=== PATIENT | male | born 1940 | race Caucasian/White ===

== ENCOUNTER → 2017-02-13 | Outpatient (REF) | payer MEDICARE, BC ==
[~2017-02-13] MED LIST: ASPI325T PO; BISO5TAB5 PO; COUM6TAB PO; DIGO0.25 PO; IBUP200C PO; PRAV40TA PO; PRIL40CA PO
[2017-02-13 17:18] LABS: MEAN CORPUSCULAR HEMOGLOBIN 33.6 pg (27.0-33.0); MEAN CORPUSCULAR HGB CONC 32.7 g/dl (32.0-36.5); MEAN CORPUSCULAR VOLUME 102.7 fl (80.0-96.0); RED CELL DISTRIBUTION WIDTH 13.3 % (11.5-14.5)
[2017-02-13 18:11] LABS: VITAMIN B12 LEVEL 595 PG/ML (247-911)
[2017-02-13 18:17] LABS: ALBUMIN 3.7 GM/DL (3.2-5.2); ALBUMIN/GLOBULIN RATIO 1.06 (1.00-1.93); ALKALINE PHOSPHATASE 101 U/L (45-117); ALT/SGPT 22 U/L (12-78); ANION GAP 6 MEQ/L (8-16); AST/SGOT 31 U/L (15-37); BILIRUBIN,TOTAL 0.8 MG/DL (0.2-1.0); BLOOD UREA NITROGEN 11 MG/DL (7-18); CALCIUM LEVEL 9.3 MG/DL (8.8-10.2); CARBON DIOXIDE LEVEL 31 MEQ/L (21-32); CHLORIDE LEVEL 98 MEQ/L (98-107); CHOLESTEROL LEVEL 169 MG/DL (<200); CREATININE FOR GFR 1.21 MG/DL (0.70-1.30); DIGOXIN LEVEL 1.7 NG/ML (0.5-2.0); GLOMERULAR FILTRATION RATE > 60.0 (>42); GLUCOSE, FASTING 91 MG/DL (83-110); POTASSIUM SERUM 4.8 MEQ/L (3.5-5.1); SODIUM LEVEL 135 MEQ/L (136-145); TOTAL PROTEIN 7.2 GM/DL (6.4-8.2); TRIGLYCERIDES LEVEL 116 MG/DL (<150)
== END ==
LOC: M SFHCCAPE 09:35
PROVIDERS: ATTEND Physician Assistant
DX: I48.91 Unspecified atrial fibrillation (principal); Z12.5 Encounter for screening for malignant neoplasm of prostate; M25.50 Pain in unspecified joint; Z79.899 Other long term (current) drug therapy
CPT/HCPCS: 36415; 80053; 80061; 80162; 82607; 84443; 85027; G0103

== ENCOUNTER → 2018-02-16 | Outpatient (REF) | payer MEDICARE, BC | LOC: M SFHCCAPE 09:41 | DX: I48.91 Unspecified atrial fibrillation (principal); Z12.5 Encounter for screening for malignant neoplasm of prostate; Z53.8 Procedure and treatment not carried out for other reasons ==

== ENCOUNTER → 2018-02-19 | Outpatient (REF) | payer MEDICARE, BC ==
[2018-02-19 16:44] LABS: BASO % 0.7 % (0.0-1.0); EOS # 0.2 10^3/uL (0.0-0.50); EOS % 4.3 % (0.0-3.0); HEMATOCRIT 46.3 % (42.0-52.0); HEMOGLOBIN 15.6 g/dl (13.5-17.5); IMMATURE GRANULOCYTE % 0.2 % (0-3.0); MEAN CORPUSCULAR HEMOGLOBIN 32.9 pg (27.0-33.0); MEAN CORPUSCULAR HGB CONC 33.7 g/dl (32.0-36.5); MEAN CORPUSCULAR VOLUME 97.7 fl (80.0-96.0); MONO # 0.5 10^3/uL (0.0-0.8); MONO % 8.7 % (0.0-5.0); NEUTROPHILS # 2.7 10^3/uL (1.8-7.7); NEUTROPHILS % 49.1 % (36.0-66.0); PLATELET COUNT, AUTOMATED 157 10^3/uL (150-450); RED BLOOD COUNT 4.74 10^6/uL (4.30-6.10); RED CELL DISTRIBUTION WIDTH 14.2 % (11.5-14.5); WHITE BLOOD COUNT 5.5 10^3/uL (4.0-10.0)
[2018-02-19 17:22] LABS: ALBUMIN 3.9 GM/DL (3.2-5.2); ALBUMIN/GLOBULIN RATIO 1.03 (1.00-1.93); ALKALINE PHOSPHATASE 105 U/L (45-117); ALT/SGPT 24 U/L (12-78); ANION GAP 6 MEQ/L (8-16); AST/SGOT 36 U/L (7-37); BILIRUBIN,TOTAL 1.1 MG/DL (0.2-1.0); BLOOD UREA NITROGEN 17 MG/DL (7-18); CALCIUM LEVEL 9.1 MG/DL (8.8-10.2); CARBON DIOXIDE LEVEL 31 MEQ/L (21-32); CHLORIDE LEVEL 101 MEQ/L (98-107); CHOLESTEROL LEVEL 169 MG/DL (<200); CHOLESTEROL RISK RATIO 2.522 (<5); CREATININE FOR GFR 1.12 MG/DL (0.70-1.30); FREE T4 1.07 NG/DL (0.76-1.46); GLOMERULAR FILTRATION RATE > 60.0 (>42); GLUCOSE, FASTING 88 MG/DL (70-100); HDL CHOLESTEROL 67 MG/DL (>40); LDL CHOLESTEROL 83.8 MG/DL (<100); NON-HDL-C 102 MG/DL; POTASSIUM SERUM 4.4 MEQ/L (3.5-5.1); PSA SCREENING 2.91 NG/ML (< 4.0); SODIUM LEVEL 138 MEQ/L (136-145); TOTAL PROTEIN 7.7 GM/DL (6.4-8.2); TRIGLYCERIDES LEVEL 91 MG/DL (<150)
== END ==
LOC: M SFHCCAPE 10:19
DX: Z12.5 Encounter for screening for malignant neoplasm of prostate (principal); I10 Essential (primary) hypertension
CPT/HCPCS: 84443

== ENCOUNTER → 2018-05-27 | Outpatient (REF) | payer MEDICARE, BC | LOC: M SFHCCAPE 09:53 | DX: Z01.818 Encounter for other preprocedural examination (principal); H26.9 Unspecified cataract ==

== ENCOUNTER 2018-06-11 06:46 | Day surgery (SDC) | payer MEDICARE, BC ==
[2018-06-11] MEDS ORDERED: MIDAZOLAM INJ 2 MG/2 ML VIAL (J2250) As Ordered (07:11)
[2018-06-11] MEDS ORDERED: fentaNYL 100 MCG/2 ML INJECTION (J3010) As Ordered (07:11)
[2018-06-11] MEDS: PROPARACAINE 0.5% OPHTH SOL 15ML OS (07:42)
[2018-06-11] MEDS: TROPICAMIDE 1% OPHTH SOLN 2ML OS (07:42)
[2018-06-11] MEDS: PHENYLEPHRINE 2.5% OPHTH SOL 2ML OS (07:42)
[2018-06-11] MEDS: OFLOXACIN 0.3 % (OCUFLOX) OPTH SOL 5ML OS (07:42)
[2018-06-11] MEDS: POVIDONE-IODINE 5% OPHTH PREP SOL 30ML As Ordered (09:04)
[2018-06-11] MEDS: LIDOCAINE 0.75%/EPINEPHRINE 0.025% IN BSS 1ML SYR INTRACAMERAL (OR ONLY) As Ordered (09:08)
[2018-06-11] MEDS: BALANCED SALT IRRIGATION SOLUTION 500ML BAG (FOR OR EYE MACHINE) As Ordered (09:11)
[2018-06-11] MEDS: DUOVISC (0.50ML VISCOAT/0.55ML PROVISC) OPHTH KIT As Ordered (09:13)
== END 2018-06-11 09:52 | disposition home or self-care (01) ==
LOC: M SDC 06:46
DX: H25.12 Age-related nuclear cataract, left eye (principal); I48.91 Unspecified atrial fibrillation; Z86.73 Personal history of transient ischemic attack (TIA), and cerebral infarction without residual deficits; Z88.0 Allergy status to penicillin; Z79.899 Other long term (current) drug therapy; F17.210 Nicotine dependence, cigarettes, uncomplicated
CPT/HCPCS: 66984

== ENCOUNTER 2018-06-18 08:09 | Day surgery (SDC) | payer MEDICARE, BC ==
[2018-06-18] MEDS: PHENYLEPHRINE 2.5% OPHTH SOL 2ML OD (09:16)
[2018-06-18] MEDS: TROPICAMIDE 1% OPHTH SOLN 2ML OD (09:16)
[2018-06-18] MEDS: PROPARACAINE 0.5% OPHTH SOL 15ML OD (09:17)
[2018-06-18] MEDS: OFLOXACIN 0.3 % (OCUFLOX) OPTH SOL 5ML OD (09:17)
[2018-06-18] MEDS ORDERED: MIDAZOLAM INJ 2 MG/2 ML VIAL (J2250) As Ordered (10:22)
[2018-06-18] MEDS ORDERED: fentaNYL 100 MCG/2 ML INJECTION (J3010) As Ordered (10:22)
[2018-06-18] MEDS: BALANCED SALT IRRIGATION SOLUTION 500ML BAG (FOR OR EYE MACHINE) As Ordered (11:00)
[2018-06-18] MEDS: POVIDONE-IODINE 5% OPHTH PREP SOL 30ML As Ordered (11:00)
[2018-06-18] MEDS: DUOVISC (0.50ML VISCOAT/0.55ML PROVISC) OPHTH KIT As Ordered (11:01)
[2018-06-18] MEDS: LIDOCAINE 0.75%/EPINEPHRINE 0.025% IN BSS 1ML SYR INTRACAMERAL (OR ONLY) As Ordered (11:01)
== END 2018-06-18 11:44 | disposition home or self-care (01) ==
LOC: M SDC 08:09
DX: H25.11 Age-related nuclear cataract, right eye (principal); I48.2 Chronic atrial fibrillation; I10 Essential (primary) hypertension; R25.2 Cramp and spasm; R60.9 Edema, unspecified; F17.200 Nicotine dependence, unspecified, uncomplicated; E78.5 Hyperlipidemia, unspecified; Z88.0 Allergy status to penicillin; Z79.899 Other long term (current) drug therapy; Z79.01 Long term (current) use of anticoagulants; Z86.73 Personal history of transient ischemic attack (TIA), and cerebral infarction without residual deficits
CPT/HCPCS: 66984

== ENCOUNTER → 2020-03-27 | Outpatient (REF) | payer MEDICARE, BC ==
[~2020-03-27] MED LIST changes: +ASPI-1 PO; -ASPI325T PO; +BISO5TAB14 PO; -BISO5TAB5 PO; +ELIQ5TAB PO; -IBUP200C PO; +IBUP200C25 PO; +MAGN250T9 PO; +TYLE500T78 PO
[2020-03-27 11:29] LABS: APPEARANCE, URINE CLEAR (CLEAR); BACTERIA, URINE AUTO 3+ (NEGATIVE); BASO % 0.7 % (0.0-1.0); BILIRUBIN, URINE AUTO NEGATIVE (NEGATIVE); BLOOD, URINE BLOOD NEGATIVE (NEGATIVE); COLOR, URINE YELLOW (YELLOW); EOS # 0.5 10^3/uL (0.0-0.5); EOS % 8.6 % (0.0-3.0); GLUCOSE, URINE (UA) AUTO NEGATIVE (NEGATIVE); HEMATOCRIT 44.6 % (42.0-52.0); HEMOGLOBIN 14.6 g/dl (13.5-17.5); KETONE, URINE AUTO NEGATIVE (NEGATIVE); LEUKOCYTE ESTERASE, URINE AUTO 1+ (NEGATIVE); LYMPH # 2.6 10^3/uL (1.5-5.0); LYMPH % 45.4 % (24.0-44.0); MEAN CORPUSCULAR HEMOGLOBIN 31.9 pg (27.0-33.0); MEAN CORPUSCULAR HGB CONC 32.7 g/dl (32.0-36.5); MEAN CORPUSCULAR VOLUME 97.4 fl (80.0-96.0); MONO # 0.5 10^3/uL (0.0-0.8); MONO % 8.3 % (0.0-5.0); MUCUS, URINE SMALL (NEGATIVE); NEUTROPHILS # 2.1 10^3/uL (1.5-8.5); NEUTROPHILS % 36.8 % (36.0-66.0); NITRITE, URINE AUTO POSITIVE (NEGATIVE); PLATELET COUNT, AUTOMATED 141 10^3/uL (150-450); PROTEIN, URINE AUTO NEGATIVE (NEGATIVE); RBC, URINE AUTO 2 /HPF (0-3); RED BLOOD COUNT 4.58 10^6/uL (4.30-6.10); SPECIFIC GRAVITY URINE AUTO 1.016 (1.002-1.035); SQUAMOUS EPITHELIAL CELL UR AU 0 /HPF (0-6); UROBILINOGEN, URINE AUTO 0.2 mg/dL (0.0-2.0); WBC, URINE AUTO 15 /HPF (0-3); WHITE BLOOD COUNT 5.8 10^3/uL (4.0-10.0)
[2020-03-27 11:45] LABS: ALBUMIN 3.7 GM/DL (3.2-5.2); BILIRUBIN,TOTAL 0.7 MG/DL (0.2-1.0); CHOLESTEROL RISK RATIO 2.606 (<5); CREATININE FOR GFR 1.32 MG/DL (0.70-1.30); DIGOXIN LEVEL 0.9 NG/ML (0.5-2.0); GLOMERULAR FILTRATION RATE 55.6 (>35); POTASSIUM SERUM 4.6 MEQ/L (3.5-5.1); THYROID STIMULATING HORMONE 1.73 uIU/ML (0.358-3.740); TOTAL PROTEIN 7.2 GM/DL (6.4-8.2)
== END ==
LOC: M SFHCCLAY 07:49
PROVIDERS: ATTEND Physician Assistant
DX: I48.91 Unspecified atrial fibrillation (principal); E78.5 Hyperlipidemia, unspecified; Z12.5 Encounter for screening for malignant neoplasm of prostate; I10 Essential (primary) hypertension
CPT/HCPCS: 80053; 80061; 80162; 81001; 84443; 85025; G0103

== ENCOUNTER → 2022-11-20 | Outpatient (REF) | payer MEDICARE ==
[~2022-11-20] MED LIST changes: -COUM6TAB PO; +COUM6TAB10 PO
[2022-11-20 17:02] LABS: ALBUMIN 3.7 G/DL (3.2-5.2); BILIRUBIN,TOTAL 0.8 MG/DL (0.3-1.2); CALCIUM LEVEL 9.6 MG/DL (8.3-10.6); CHOLESTEROL RISK RATIO 2.38 (<5); CREATININE FOR GFR 1.4 MG/DL (0.70-1.30); DIGOXIN LEVEL 1.4 NG/ML (0.8-2.0); GLOMERULAR FILTRATION RATE 51.7 (>35); HDL CHOLESTEROL 57.9 MG/DL (>40); LDL CHOLESTEROL 64.7 MG/DL (<100)
[2022-11-20 17:04] LABS: THYROID STIMULATING HORMONE 2.221 uIU/ML (0.55-4.78)
[2022-11-20 17:14] LABS: BASO % 0.7 % (0.0-1.0); EOS # 0.3 10^3/uL (0.0-0.5); EOS % 7.6 % (0.0-3.0); HEMATOCRIT 38.6 % (42.0-52.0); HEMOGLOBIN 12.4 g/dl (13.5-17.5); LYMPH # 1.2 10^3/uL (1.5-5.0); MEAN CORPUSCULAR HEMOGLOBIN 31.3 pg (27.0-33.0); MEAN CORPUSCULAR HGB CONC 32.1 g/dl (32.0-36.5); MEAN CORPUSCULAR VOLUME 97.5 fl (80.0-96.0); MONO # 0.5 10^3/uL (0.0-0.8); MONO % 11.1 % (2.0-8.0); NEUTROPHILS # 2.1 10^3/uL (1.5-8.5); NEUTROPHILS % 50.4 % (36.0-66.0); PLATELET COUNT, AUTOMATED 141 10^3/uL (150-450); RED BLOOD COUNT 3.96 10^6/uL (4.30-6.10); WHITE BLOOD COUNT 4.1 10^3/uL (4.0-10.0)
== END ==
LOC: M SFHCCAPE 10:38
PROVIDERS: ATTEND Physician Assistant
DX: I10 Essential (primary) hypertension (principal); E78.5 Hyperlipidemia, unspecified; I48.21 Permanent atrial fibrillation; Z12.5 Encounter for screening for malignant neoplasm of prostate
CPT/HCPCS: 80053; 80061; 80162; 84443; 85025; G0103

== ENCOUNTER → 2023-03-03 | Outpatient (REF) | payer MEDICARE ==
[2023-03-03 18:49] LABS: HEMOGLOBIN A1c 5.1 % (4.0-6.0)
[2023-03-03 19:04] LABS: CALCIUM LEVEL 9.4 MG/DL (8.3-10.6); CREATININE FOR GFR 1.32 MG/DL (0.70-1.30); GLOMERULAR FILTRATION RATE 55.1 (>35); POTASSIUM SERUM 4.6 MMOL/L (3.5-5.1)
== END ==
LOC: M LABDRWCV 17:15
PROVIDERS: ATTEND Physician Assistant
DX: R60.9 Edema, unspecified (principal); I73.9 Peripheral vascular disease, unspecified; Z79.899 Other long term (current) drug therapy

== ENCOUNTER → 2023-03-21 | Outpatient (CLI) | payer MEDICARE | LOC: M RAD 13:24 | PROVIDERS: ATTEND Internal Medicine Cardiovascular Disease | DX: I73.9 Peripheral vascular disease, unspecified (principal) ==

== ENCOUNTER 2023-06-05 08:54 | Day surgery (SDC) | payer MEDICARE ==
[~2023-06-05] VITALS: Ht 182.9 cm; Wt 73.8 kg
[~2023-06-05 08:54] MED LIST changes: +ACET-897 PO; +DIGO0.253 PO; +FURO20TA2 PO; +NS 1,000 ML IV ONE
[2023-06-05] MEDS ORDERED: propofoL 200 MG/20 ML VIAL As Ordered ONE (10:37)
[2023-06-05] MEDS ORDERED: LIDOCAINE 1% MDV 20ML VIAL As Ordered ONE (10:37)
[2023-06-05 11:00] VITALS: TEMP 98.4
[2023-06-05 11:11] VITALS: BP 120/55; O2SAT 97
== END 2023-06-05 11:11 | disposition home or self-care (01) ==
LOC: M OPP 08:54
PROVIDERS: ATTEND Surgery
DX: D12.6 Benign neoplasm of colon, unspecified (principal); K57.30 Diverticulosis of large intestine without perforation or abscess without bleeding; R19.5 Other fecal abnormalities; Z79.01 Long term (current) use of anticoagulants; Z79.1 Long term (current) use of non-steroidal anti-inflammatories (NSAID); Z79.83 Long term (current) use of bisphosphonates; Z88.0 Allergy status to penicillin

== ENCOUNTER → 2023-12-02 | Outpatient (REF) | payer MEDICARE ==
[~2023-12-02] MED LIST changes: -NS 1,000 ML IV ONE
[2023-12-02 19:33] LABS: BASO # 0.1 10^3/uL (0.0-0.2); BASO % 1.3 % (0.0-1.0); EOS # 0.5 10^3/uL (0.0-0.5); EOS % 10.2 % (0.0-3.0); HEMOGLOBIN 12.2 g/dl (13.5-17.5); LYMPH # 1.4 10^3/uL (1.5-5.0); MEAN CORPUSCULAR HEMOGLOBIN 31.6 pg (27.0-33.0); MEAN CORPUSCULAR HGB CONC 31.3 g/dl (32.0-36.5); MONO # 0.5 10^3/uL (0.0-0.8); NEUTROPHILS # 2.1 10^3/uL (1.5-8.5); NEUTROPHILS % 46.3 % (36.0-66.0); PLATELET COUNT, AUTOMATED 140 10^3/uL (150-450); RED BLOOD COUNT 3.86 10^6/uL (4.30-6.10); WHITE BLOOD COUNT 4.6 10^3/uL (4.0-10.0)
[2023-12-02 19:50] LABS: ALBUMIN 3.6 G/DL (3.2-5.2); ALKALINE PHOSPHATASE 130 U/L (46-116); ALT/SGPT 11 U/L (7.0-40); AST/SGOT 23 U/L (<34); BILIRUBIN,TOTAL 0.8 MG/DL (0.3-1.2); BLOOD UREA NITROGEN 21 MG/DL (9-23); CARBON DIOXIDE LEVEL 29 MMOL/L (20-31); CHLORIDE LEVEL 103 MMOL/L (98-107); CHOLESTEROL LEVEL 131 MG/DL (<200); CHOLESTEROL RISK RATIO 2.24 (<5); GLOMERULAR FILTRATION RATE > 60.0 (>35); GLUCOSE, FASTING 121 MG/DL (74-106); HDL CHOLESTEROL 58.4 MG/DL (>40); LDL CHOLESTEROL 57.6 MG/DL (<100); NON-HDL-C 72.6 MG/DL; POTASSIUM SERUM 4.5 MMOL/L (3.5-5.1); SODIUM LEVEL 137 MMOL/L (136-145); TRIGLYCERIDES LEVEL 75 MG/DL (<150)
== END ==
LOC: M SFHCCAPE 08:14
PROVIDERS: ATTEND Physician Assistant Medical
DX: I10 Essential (primary) hypertension (principal); E78.5 Hyperlipidemia, unspecified

== ENCOUNTER 2024-07-04 23:35 | Inpatient (IN) | payer MEDICARE ==
[~2024-07-04] VITALS: Ht 182.9 cm; Wt 74.0 kg
[2024-07-05] VITALS (8 sets, daily range): BP systolic 110–169; BP diastolic 53–95; TEMP 96.8–97.7; O2SAT 85–95
[2024-07-05 01:15] LABS: BASO % 0.8 % (0.0-1.0); EOS # 0.6 10^3/uL (0.0-0.5); EOS % 12.8 % (0.0-3.0); HEMATOCRIT 29.7 % (42.0-52.0); HEMOGLOBIN 9.8 g/dl (13.5-17.5); LYMPH # 1.5 10^3/uL (1.5-5.0); LYMPH % 29.8 % (24.0-44.0); MONO # 0.6 10^3/uL (0.0-0.8); MONO % 12.1 % (2.0-8.0); NEUTROPHILS # 2.2 10^3/uL (1.5-8.5); NEUTROPHILS % 44.3 % (36.0-66.0); PLATELET COUNT, AUTOMATED 148 10^3/uL (150-450); RED BLOOD COUNT 2.97 10^6/uL (4.30-6.10); WHITE BLOOD COUNT 4.9 10^3/uL (4.0-10.0)
[2024-07-05 01:20] LABS: INR 1.47; PARTIAL THROMBOPLASTIN TIME 35.9 SECONDS (24.8-34.2); PROTHROMBIN TIME 17.4 SECONDS (12.5-14.5)
[2024-07-05 01:26] LABS: BLOOD UREA NITROGEN 25 MG/DL (9-23); CARBON DIOXIDE LEVEL 28 MMOL/L (20-31); CHLORIDE LEVEL 101 MMOL/L (98-107); CREATININE FOR GFR 1.19 MG/DL (0.70-1.30); DIGOXIN LEVEL 1.4 NG/ML (0.8-2.0); GLOMERULAR FILTRATION RATE > 60.0 (>35); GLUCOSE, FASTING 108 MG/DL (74-106); SODIUM LEVEL 133 MMOL/L (136-145)
[2024-07-05] MEDS ORDERED: HOME MED LIST COMPLETE! XX SCH (01:40)
[2024-07-05] MEDS ORDERED: MORPHINE 2 MG/ML 1ML VIAL IV PRN (01:40)
[2024-07-05] MEDS ORDERED: ACET-683 PO (01:40)
[2024-07-05] MEDS ORDERED: MOM 30ML SUSPENSION UDC PO PRN (01:40)
[2024-07-05] MEDS ORDERED: MORPHINE 4 MG/ML 1ML VIAL IV PRN (01:40)
[2024-07-05 03:01] LABS: IRON (FE) 97 UG/DL (65-175); PERCENT SATURATION 36.5 % (19.7-50.0); TOTAL IRON BINDING CAPACITY 266 UG/DL (250-425)
[2024-07-05 03:03] LABS: FERRITIN 128.1 NG/ML (10.5-307.3); FOLATE 8.01 NG/ML (>5.4); VITAMIN B12 LEVEL 234 PG/ML (211-911)
[2024-07-05] MEDS: NICOTINE 21MG/24HR 1 EA TRANSDERMAL TD SCH (09:00)
[2024-07-05] MEDS: BISOPROLOL FUM 2.5 MG PER 1/2TAB PO SCH (09:00)
[2024-07-05] MEDS: DIGOXIN 0.125 MG TAB PO SCH (09:00)
[2024-07-05] MEDS: DOCUSATE SODIUM 100MG CAPSULE PO SCH (09:00)
[2024-07-05] MEDS: NS 1,000 ML IV SCH (14:10)
[2024-07-05] MEDS ORDERED: dexAMETHasone 10MG/1ML VIAL PRES.FREE PN ONE (14:15)
[2024-07-05] MEDS: fentaNYL 100 MCG/2 ML INJECTION IV PRN (15:09)
[2024-07-05] MEDS: MIDAZOLAM INJ 2MG/2ML VIAL IV PRN (15:10)
[2024-07-05] MEDS: POLYSPORIN TOPICAL OINTMENT 15GM TOP ONE (15:45)
[2024-07-05] MEDS ORDERED: LIDOCAINE 2% 100MG/5ML SDV (FOR ANES.) As Ordered ONE (15:54)
[2024-07-05] MEDS ORDERED: propofoL 200 MG/20 ML VIAL As Ordered ONE (15:54)
[2024-07-05] MEDS ORDERED: fentaNYL 100 MCG/2 ML INJECTION As Ordered ONE (15:54)
[2024-07-05] MEDS: BACITRACIN OINTMENT 30GM TUBE As Ordered ONE (16:06)
[2024-07-05] MEDS ORDERED: ONDANSETRON 4MG 2ML VIAL As Ordered ONE (16:21)
[2024-07-05] MEDS ORDERED: ePHEDrine SULFATE 25 MG/5 ML(5MG/ML) SYRINGE As Ordered ONE (16:30)
[2024-07-05] MEDS ORDERED: PHENYLephrine 500MCG 5ML (100MCG/ML) SYRINGE As Ordered ONE (16:32)
[2024-07-05] MEDS ORDERED: HYDROmorphone HCL 2MG/ML 1ML VIAL As Ordered ONE (16:39)
[2024-07-05] MEDS: ceFAZolin 2 GM/D5W 50 ML IV BAG As Ordered ONE (16:45)
[2024-07-05] MEDS: TRANEXAMIC ACID 100 MG/ML 10ML VIAL As Ordered ONE (16:45)
[2024-07-05] MEDS: VANCOMYCIN 1000MG/20ML VIAL As Ordered ONE (17:36)
[2024-07-05] MEDS ORDERED: oxyCODONE 5MG TAB PO PRN (17:50)
[2024-07-05] MEDS ORDERED: HYDROMORPHONE HCL 0.5 MG/ 0.5 ML SYRINGE IV PRN (17:50)
[2024-07-05] MEDS ORDERED: ONDANSETRON 4MG 2ML VIAL IV PRN (17:50)
[2024-07-05] MEDS ORDERED: fentaNYL 100 MCG/2 ML INJECTION IV PRN (17:50)
[2024-07-05] MEDS: LR 1,000 ML IV SCH (21:49)
[2024-07-06] MEDS: ceFAZolin SOD 1 GM in D5W MINI-BAG PLUS 50 ML IV SCH (01:54)
[2024-07-06 05:05] VITALS: BP 116/61; TEMP 97.7; O2SAT 95
[2024-07-06 06:03] LABS: HEMATOCRIT 25.6 % (42.0-52.0); HEMOGLOBIN 8.4 g/dl (13.5-17.5); MEAN CORPUSCULAR HEMOGLOBIN 32.9 pg (27.0-33.0); MEAN CORPUSCULAR HGB CONC 32.8 g/dl (32.0-36.5); MEAN CORPUSCULAR VOLUME 100.4 fl (80.0-96.0); PLATELET COUNT, AUTOMATED 127 10^3/uL (150-450); RED BLOOD COUNT 2.55 10^6/uL (4.30-6.10); WHITE BLOOD COUNT 4.7 10^3/uL (4.0-10.0)
[2024-07-06 06:23] LABS: BLOOD UREA NITROGEN 24 MG/DL (9-23); CALCIUM LEVEL 8.8 MG/DL (8.3-10.6); CARBON DIOXIDE LEVEL 26 MMOL/L (20-31); CHLORIDE LEVEL 105 MMOL/L (98-107); CREATININE FOR GFR 0.95 MG/DL (0.70-1.30); GLOMERULAR FILTRATION RATE > 60.0 (>35); GLUCOSE, FASTING 149 MG/DL (74-106); POTASSIUM SERUM 4.8 MMOL/L (3.5-5.1); SODIUM LEVEL 136 MMOL/L (136-145)
[2024-07-06 08:00] VITALS: BP 116/77; TEMP 97.9; O2SAT 96
[2024-07-06 12:00] VITALS: BP 118/79; TEMP 97.5; O2SAT 92
[2024-07-06] MEDS: ACETAMINOPHEN TAB 650MG DOSE (2X325MG) PO PRN (15:38)
[2024-07-06 21:23] VITALS: BP 120/63; TEMP 97.7; O2SAT 94
[2024-07-07 04:00] VITALS: BP 119/59; TEMP 97.5; O2SAT 95
[2024-07-07 06:13] LABS: MEAN CORPUSCULAR HEMOGLOBIN 33.5 pg (27.0-33.0); MEAN CORPUSCULAR HGB CONC 33.3 g/dl (32.0-36.5); MEAN CORPUSCULAR VOLUME 100.4 fl (80.0-96.0); PLATELET COUNT, AUTOMATED 127 10^3/uL (150-450); RED BLOOD COUNT 2.39 10^6/uL (4.30-6.10); WHITE BLOOD COUNT 6.8 10^3/uL (4.0-10.0)
[2024-07-07 06:44] LABS: BLOOD UREA NITROGEN 33 MG/DL (9-23); CALCIUM LEVEL 9.3 MG/DL (8.3-10.6); CARBON DIOXIDE LEVEL 29 MMOL/L (20-31); CHLORIDE LEVEL 105 MMOL/L (98-107); GLOMERULAR FILTRATION RATE > 60.0 (>35); GLUCOSE, FASTING 100 MG/DL (74-106); POTASSIUM SERUM 4.7 MMOL/L (3.5-5.1); SODIUM LEVEL 136 MMOL/L (136-145)
[2024-07-07 12:00] VITALS: BP 121/68; TEMP 98.1; O2SAT 94
[2024-07-07 20:22] VITALS: BP 123/59; TEMP 97.9; O2SAT 94
[2024-07-08 04:56] VITALS: BP 115/59; TEMP 98.1; O2SAT 93
[2024-07-08 06:21] LABS: HEMATOCRIT 24.1 % (42.0-52.0); HEMOGLOBIN 7.7 g/dl (13.5-17.5); MEAN CORPUSCULAR HEMOGLOBIN 32.2 pg (27.0-33.0); MEAN CORPUSCULAR VOLUME 100.8 fl (80.0-96.0); PLATELET COUNT, AUTOMATED 147 10^3/uL (150-450); RED BLOOD COUNT 2.39 10^6/uL (4.30-6.10); WHITE BLOOD COUNT 5.3 10^3/uL (4.0-10.0)
[2024-07-08 09:46] VITALS: BP 116/60
[2024-07-08] MEDS ORDERED: OXYC1TAB23 PO (10:33)
[2024-07-08 12:45] VITALS: BP 117/59; TEMP 97.7; O2SAT 92
[2024-07-08] MEDS ORDERED: FLUBLOK(EGGFREE) TRIVAL(24-25) VACCINE PF 0.5ML SYRINGE 18YRS & OLDER IM.IMMUN ONE (15:00)
== END 2024-07-08 13:20 | disposition home health service (06) | DRG 481 ==
LOC: M ED 23:35 → EDBD 23:35 → M ED INP 07-05 01:36 → M MS5PR 07-05 03:21
PROVIDERS: ADMIT Student in an Organized Health Care Education/Training Program; ATTEND Internal Medicine
PROC: 0QS606Z Reposition Right Upper Femur with Intramedullary Internal Fixation Device, Open Approach (ICD-10-PCS; principal; 2024-07-05 14:30)
DX: S72.141A Displaced intertrochanteric fracture of right femur, initial encounter for closed fracture (principal); I48.20 Chronic atrial fibrillation, unspecified; W18.09XA Striking against other object with subsequent fall, initial encounter; E78.5 Hyperlipidemia, unspecified; Y93.89 Activity, other specified; Y92.9 Unspecified place or not applicable; Y99.9 Unspecified external cause status; F17.210 Nicotine dependence, cigarettes, uncomplicated; D64.9 Anemia, unspecified; Z86.73 Personal history of transient ischemic attack (TIA), and cerebral infarction without residual deficits; Z66 Do not resuscitate; Z79.01 Long term (current) use of anticoagulants; Z79.899 Other long term (current) drug therapy; Z88.0 Allergy status to penicillin

== ENCOUNTER 2024-07-16 15:28 | Emergency (ER) | payer MEDICARE ==
[~2024-07-16] VITALS: Ht 182.9 cm; Wt 59.2 kg
[~2024-07-16 15:28] MED LIST changes: +ACET-683 PO; +OXYC1TAB23 PO
[2024-07-16 16:40] LABS: BASO % 0.6 % (0.0-1.0); EOS # 0.2 10^3/uL (0.0-0.5); EOS % 3.2 % (0.0-3.0); HEMATOCRIT 28.6 % (42.0-52.0); HEMOGLOBIN 9.1 g/dl (13.5-17.5); LYMPH # 1.3 10^3/uL (1.5-5.0); LYMPH % 21.2 % (24.0-44.0); MEAN CORPUSCULAR HEMOGLOBIN 33.7 pg (27.0-33.0); MEAN CORPUSCULAR HGB CONC 31.8 g/dl (32.0-36.5); MEAN CORPUSCULAR VOLUME 105.9 fl (80.0-96.0); MONO # 0.7 10^3/uL (0.0-0.8); MONO % 11.1 % (2.0-8.0); NEUTROPHILS % 63.4 % (36.0-66.0); PLATELET COUNT, AUTOMATED 290 10^3/uL (150-450); WHITE BLOOD COUNT 6.3 10^3/uL (4.0-10.0)
[2024-07-16 16:49] LABS: ERYTHROCYTE SEDIMENTATION RATE 40 mm/hr (0-20)
[2024-07-16 17:01] LABS: C REACTIVE PROTEIN QUANTITATIV 1.1 MG/DL (<1.0)
[2024-07-16 17:03] LABS: CALCIUM LEVEL 9.9 MG/DL (8.3-10.6); CREATININE FOR GFR 1.29 MG/DL (0.70-1.30); GLOMERULAR FILTRATION RATE 56.5 (>35); POTASSIUM SERUM 4.9 MMOL/L (3.5-5.1)
[2024-07-16] MEDS: CIPROFLOXACIN 400 MG in IV 1 EA IV ONE (19:13)
[2024-07-16 20:10] VITALS: BP 129/62; TEMP 97.2; O2SAT 98
[2024-07-16] MEDS ORDERED: CIPR-249 PO (21:12)
== END 2024-07-16 21:16 | disposition home or self-care (01) ==
LOC: M ED 15:28
DX: N39.0 Urinary tract infection, site not specified (principal); T81.49XA Infection following a procedure, other surgical site, initial encounter; Z88.0 Allergy status to penicillin; Z79.1 Long term (current) use of non-steroidal anti-inflammatories (NSAID); Z79.01 Long term (current) use of anticoagulants; Z79.2 Long term (current) use of antibiotics; Z79.899 Other long term (current) drug therapy
CPT/HCPCS: 73700; 80048; 81001; 85025; 85652; 86140; 87040; 87088; 87186; 93971; 96365; 96366; 99284; J0744

== ENCOUNTER → 2024-07-19 | Outpatient (CLI) | payer MEDICARE ==
[~2024-07-19] MED LIST changes: +CIPR-249 PO
== END ==
LOC: M SOG 07:22
PROVIDERS: ATTEND Physician Assistant
DX: S72.141A Displaced intertrochanteric fracture of right femur, initial encounter for closed fracture (principal); Z47.89 Encounter for other orthopedic aftercare; W18.30XA Fall on same level, unspecified, initial encounter; Y92.009 Unspecified place in unspecified non-institutional (private) residence as the place of occurrence of the external cause

== ENCOUNTER → 2024-08-24 | Outpatient (CLI) | payer MEDICARE | LOC: M SOG 07:22 | PROVIDERS: ATTEND Physician Assistant | DX: S72.141A Displaced intertrochanteric fracture of right femur, initial encounter for closed fracture (principal); Z47.89 Encounter for other orthopedic aftercare; W18.30XA Fall on same level, unspecified, initial encounter; Y92.009 Unspecified place in unspecified non-institutional (private) residence as the place of occurrence of the external cause ==

== ENCOUNTER → 2024-09-14 | Outpatient (REF) | payer MEDICARE ==
[2024-09-14 18:08] LABS: ALBUMIN 3.1 G/DL (3.2-5.2); ALKALINE PHOSPHATASE 162 U/L (40-129); ALT/SGPT < 9 U/L (7.0-40); AST/SGOT 18 U/L (<34); BILIRUBIN,TOTAL 0.4 MG/DL (0.3-1.2); BLOOD UREA NITROGEN 30 MG/DL (9-23); CALCIUM LEVEL 9.7 MG/DL (8.3-10.6); CARBON DIOXIDE LEVEL 30 MMOL/L (20-31); CHLORIDE LEVEL 108 MMOL/L (98-107); CHOLESTEROL LEVEL 132 MG/DL (<200); CHOLESTEROL RISK RATIO 2.67 (<5); CREATININE FOR GFR 1.23 MG/DL (0.70-1.30); GLOMERULAR FILTRATION RATE 59.7 (>35); GLUCOSE, FASTING 84 MG/DL (74-106); HDL CHOLESTEROL 49.4 MG/DL (>40); LDL CHOLESTEROL 68.2 MG/DL (<100); NON-HDL-C 82.6 MG/DL; POTASSIUM SERUM 4.2 MMOL/L (3.5-5.1); SODIUM LEVEL 142 MMOL/L (136-145); TOTAL PROTEIN 6.9 G/DL (5.7-8.2); TRIGLYCERIDES LEVEL 72 MG/DL (<150)
[2024-09-14 18:10] LABS: BASO # 0.1 10^3/uL (0.0-0.2); BASO % 1.3 % (0.0-1.0); EOS # 0.4 10^3/uL (0.0-0.5); EOS % 7.8 % (0.0-3.0); HEMATOCRIT 33.9 % (42.0-52.0); HEMOGLOBIN 10.6 g/dl (13.5-17.5); LYMPH # 1.9 10^3/uL (1.5-5.0); LYMPH % 35.7 % (24.0-44.0); MEAN CORPUSCULAR HGB CONC 31.3 g/dl (32.0-36.5); MEAN CORPUSCULAR VOLUME 102.4 fl (80.0-96.0); MONO # 0.7 10^3/uL (0.0-0.8); MONO % 12.4 % (2.0-8.0); NEUTROPHILS # 2.3 10^3/uL (1.5-8.5); NEUTROPHILS % 42.6 % (36.0-66.0); PLATELET COUNT, AUTOMATED 192 10^3/uL (150-450); RED BLOOD COUNT 3.31 10^6/uL (4.30-6.10); WHITE BLOOD COUNT 5.4 10^3/uL (4.0-10.0)
== END ==
LOC: M SFHCCAPE 08:56
PROVIDERS: ATTEND Physician Assistant Medical
DX: D69.6 Thrombocytopenia, unspecified (principal); I10 Essential (primary) hypertension; R60.0 Localized edema; E78.5 Hyperlipidemia, unspecified; R06.02 Shortness of breath

== ENCOUNTER → 2024-10-05 | Outpatient (CLI) | payer MEDICARE | LOC: M SOG 07:58 | PROVIDERS: ATTEND Physician Assistant | DX: S72.141A Displaced intertrochanteric fracture of right femur, initial encounter for closed fracture (principal); W18.30XA Fall on same level, unspecified, initial encounter; Y92.009 Unspecified place in unspecified non-institutional (private) residence as the place of occurrence of the external cause ==

== ENCOUNTER 2024-10-23 20:33 | Inpatient (IN) | payer MEDICARE ==
[~2024-10-23] VITALS: Ht 182.9 cm; Wt 77.1 kg
[2024-10-23 21:11] LABS: VENOUS BASE EXCESS 2.1 (-2.0-2.0); VENOUS HCO3 30.2 MMOL/L (23.0-27.0); VENOUS O2 SATURATION 26.7 % (60.0-80.0); VENOUS PARTIAL PRESSURE CO2 64.1 mmHg (38.0-50.0); VENOUS PARTIAL PRESSURE O2 19.8 mmHg (30.0-50.0); VENOUS PH 7.291 UNITS (7.330-7.430); VENOUS STANDARD HCO3 24.8 MMOL/L; VENOUS TOTAL CO2 32.2 MMOL/L (24.0-28.0)
[2024-10-23 21:17] LABS: BASO % 0.4 % (0.0-1.0); EOS % 0.1 % (0.0-3.0); HEMATOCRIT 37.9 % (42.0-52.0); HEMOGLOBIN 11.8 g/dl (13.5-17.5); LYMPH # 0.4 10^3/uL (1.5-5.0); LYMPH % 5.4 % (24.0-44.0); MEAN CORPUSCULAR HEMOGLOBIN 30.1 pg (27.0-33.0); MEAN CORPUSCULAR HGB CONC 31.1 g/dl (32.0-36.5); MEAN CORPUSCULAR VOLUME 96.7 fl (80.0-96.0); MONO # 0.4 10^3/uL (0.0-0.8); NEUTROPHILS # 5.9 10^3/uL (1.5-8.5); NEUTROPHILS % 87.7 % (36.0-66.0); PLATELET COUNT, AUTOMATED 195 10^3/uL (150-450); RED BLOOD COUNT 3.92 10^6/uL (4.30-6.10); WHITE BLOOD COUNT 6.7 10^3/uL (4.0-10.0)
[2024-10-23] MEDS: IPRATROPIUM 0.5MG/ALBUTEROL 2.5MG INH SOL UD 3ML (DUONEB) NEB SCH (21:20)
[2024-10-23 21:28] LABS: INR 1.37; PARTIAL THROMBOPLASTIN TIME 35.8 SECONDS (24.8-34.2); PROTHROMBIN TIME 17.1 SECONDS (12.5-14.5)
[2024-10-23 21:50] LABS: CK-MB VALUE MASS 1.9 NG/ML (<3.6)
[2024-10-23 21:52] LABS: ALBUMIN 3.8 G/DL (3.2-5.2); BILIRUBIN,DIRECT 0.6 MG/DL (<0.4); BILIRUBIN,TOTAL 1.1 MG/DL (0.3-1.2); CALCIUM LEVEL 9.8 MG/DL (8.3-10.6); CREATININE FOR GFR 1.35 MG/DL (0.70-1.30); DIGOXIN LEVEL 0.9 NG/ML (0.8-2.0); GLOMERULAR FILTRATION RATE 53.6 (>35); MB/CK RELATIVE INDEX 4.31 (< OR =4); POTASSIUM SERUM 4.4 MMOL/L (3.5-5.1); TOTAL PROTEIN 7.8 G/DL (5.7-8.2)
[2024-10-23 21:53] LABS: THYROID STIMULATING HORMONE 2.817 uIU/ML (0.55-4.78)
[2024-10-23 21:54] LABS: THYROXINE (T4) 6.1 UG/DL (4.5-10.9)
[2024-10-23] MEDS ORDERED: ISOVUE-370 76% 100ML VIAL As Ordered ONE (22:36)
[2024-10-23 23:11] LABS: ABG BASE EXCESS 2.3 (-2.0-2.0); ABG HCO3 27.2 MMOL/L (22.0-26.0); ABG O2 SATURATION 93.4 % (95.0-99.0); ABG PARTIAL PRESSURE CO2 43.5 mmHg (35.0-45.0); ABG PARTIAL PRESSURE O2 67.2 mmHg (75.0-100.0); ABG STANDARD HCO3 26.4 MMOL/L. (22.0-26.0); ABG TOTAL CO2 28.5 MMOL/L (23.0-31.0); ABG pH (ARTERIAL) 7.414 UNITS (7.350-7.450)
[2024-10-23] MEDS: FUROSEMIDE 40MG/4ML VIAL IV ONE (23:41)
[2024-10-23] MEDS: cefTRIAXone SOD 2 GM in DEXTROSE 5% (D5W) ADV/MINI-BAG 50 ML IV ONE (23:42)
[2024-10-24] MEDS ORDERED: HOME MED LIST COMPLETE! XX SCH (01:05)
[2024-10-24 01:12] LABS: PROCALCITONIN 0.11 ng/ml
[2024-10-24] MEDS: DOXYCYCLINE HYCLATE 100MG TABLET PO SCH (01:26)
[2024-10-24] MEDS: methylPREDNISolone 125MG 2ML VIAL IV SCH (01:27)
[2024-10-24] MEDS: APIXABAN 5 MG TAB (ELIQUIS) PO SCH (01:57)
[2024-10-24] MEDS: ACETAMINOPHEN 500 MG TAB PO SCH (01:57)
[2024-10-24] MEDS: BENZONATATE 100MG CAPSULE PO SCH (01:58)
[2024-10-24] MEDS: IPRATROPIUM 0.5MG/ALBUTEROL 2.5MG INH SOL UD 3ML (DUONEB) INH SCH (03:09)
[2024-10-24] MEDS: DIGOXIN 0.125 MG TAB PO SCH (10:35)
[2024-10-24] MEDS: bisoproloL fumarate 5 MG TAB PO SCH (10:35)
[2024-10-24] MEDS: NICOTINE 14 MG/24 HR TRANSDERMAL TD SCH (10:37)
[2024-10-24] MEDS: FUROSEMIDE 40MG/4ML VIAL IV SCH (10:37)
[2024-10-24 15:01] VITALS: BP 128/64; TEMP 97.4; O2SAT 97
[2024-10-24 19:16] VITALS: BP 105/62; TEMP 97.8; O2SAT 96
[2024-10-24 23:10] VITALS: BP 114/60; TEMP 97.5; O2SAT 96
[2024-10-24] MEDS: cefTRIAXone SOD 1 GM in DEXTROSE 5% (D5W) ADV/MINI-BAG 50 ML IV SCH (23:13)
[2024-10-25] VITALS (8 sets, daily range): BP systolic 88–134; BP diastolic 42–65; TEMP 97.2–98; O2SAT 90–95
[2024-10-25] MEDS: NS 500 ML IV ONE (03:38)
[2024-10-25] MEDS: MIDODRINE 5 MG TAB PO ONE ×2 (03:43→09:42)
[2024-10-25] MEDS: FUROSEMIDE 20 MG TAB PO SCH (09:00)
[2024-10-25 10:01] LABS: IONIZED CALCIUM 4.6 MG/DL (4.5-5.3)
[2024-10-25 10:06] LABS: HEMATOCRIT 33.3 % (42.0-52.0); HEMOGLOBIN 10.5 g/dl (13.5-17.5); LYMPH # 0.4 10^3/uL (1.5-5.0); LYMPH % 4.2 % (24.0-44.0); MEAN CORPUSCULAR HEMOGLOBIN 30.2 pg (27.0-33.0); MEAN CORPUSCULAR HGB CONC 31.5 g/dl (32.0-36.5); MEAN CORPUSCULAR VOLUME 95.7 fl (80.0-96.0); MONO # 0.3 10^3/uL (0.0-0.8); MONO % 3.2 % (2.0-8.0); NEUTROPHILS # 8.4 10^3/uL (1.5-8.5); NEUTROPHILS % 92.1 % (36.0-66.0); PLATELET COUNT, AUTOMATED 174 10^3/uL (150-450); RED BLOOD COUNT 3.48 10^6/uL (4.30-6.10); WHITE BLOOD COUNT 9.1 10^3/uL (4.0-10.0)
[2024-10-25 10:14] LABS: ERYTHROCYTE SEDIMENTATION RATE 24 mm/hr (0-20)
[2024-10-25] MEDS: predniSONE 10MG TAB PO SCH (10:20)
[2024-10-25 10:41] LABS: C REACTIVE PROTEIN QUANTITATIV 3.75 MG/DL (<1.0)
[2024-10-25 10:47] LABS: PROCALCITONIN 0.68 ng/ml
[2024-10-25 10:53] LABS: ALBUMIN 3.3 G/DL (3.2-5.2); BILIRUBIN,TOTAL 0.5 MG/DL (0.3-1.2); CALCIUM LEVEL 9.7 MG/DL (8.3-10.6); CHOLESTEROL RISK RATIO 2.87 (<5); CREATININE FOR GFR 1.42 MG/DL (0.70-1.30); GLOMERULAR FILTRATION RATE 50.6 (>35); HDL CHOLESTEROL 46.2 MG/DL (>40); MAGNESIUM LEVEL 1.5 MG/DL (1.8-2.4); NON-HDL-C 86.8 MG/DL; POTASSIUM SERUM 3.7 MMOL/L (3.5-5.1); TOTAL PROTEIN 6.9 G/DL (5.7-8.2)
[2024-10-25] MEDS: FUROSEMIDE 20MG/2ML VIAL IV SCH (12:00)
[2024-10-25] MEDS: MIDODRINE 5 MG TAB PO SCH (14:04)
[2024-10-25] MEDS: MAG SULF 1GM/100ML (MAG RUN) 1 GM in IV 1 EA IV SCH (14:05)
[2024-10-26] VITALS (12 sets, daily range): BP systolic 104–145; BP diastolic 56–72; TEMP 97–97.7; O2SAT 85–94
[2024-10-26 09:52] LABS: EOS # 0.1 10^3/uL (0.0-0.5); EOS % 0.6 % (0.0-3.0); HEMATOCRIT 32.9 % (42.0-52.0); HEMOGLOBIN 10.6 g/dl (13.5-17.5); LYMPH # 0.6 10^3/uL (1.5-5.0); LYMPH % 6.6 % (24.0-44.0); MEAN CORPUSCULAR HEMOGLOBIN 30.1 pg (27.0-33.0); MEAN CORPUSCULAR HGB CONC 32.2 g/dl (32.0-36.5); MEAN CORPUSCULAR VOLUME 93.5 fl (80.0-96.0); MONO # 0.8 10^3/uL (0.0-0.8); MONO % 8.1 % (2.0-8.0); NEUTROPHILS # 7.9 10^3/uL (1.5-8.5); NEUTROPHILS % 84.1 % (36.0-66.0); PLATELET COUNT, AUTOMATED 175 10^3/uL (150-450); RED BLOOD COUNT 3.52 10^6/uL (4.30-6.10); WHITE BLOOD COUNT 9.4 10^3/uL (4.0-10.0)
[2024-10-26 10:24] LABS: CALCIUM LEVEL 9.8 MG/DL (8.3-10.6); CREATININE FOR GFR 1.3 MG/DL (0.70-1.30); MAGNESIUM LEVEL 1.8 MG/DL (1.8-2.4)
[2024-10-26] MEDS: metOLazone 2.5 MG TAB PO ONE (11:07)
[2024-10-26] MEDS: FUROSEMIDE 40 MG TAB PO ONE (11:47)
[2024-10-26] MEDS: TAMSULOSIN 0.4 MG CAP PO SCH (20:30)
[2024-10-27] VITALS (7 sets, daily range): BP systolic 98–119; BP diastolic 52–62; TEMP 97.4–98.2; O2SAT 90–92
[2024-10-27 12:30] LABS: BASO % 0.2 % (0.0-1.0); EOS % 0.2 % (0.0-3.0); HEMATOCRIT 33.2 % (42.0-52.0); HEMOGLOBIN 10.5 g/dl (13.5-17.5); LYMPH # 0.6 10^3/uL (1.5-5.0); LYMPH % 9.9 % (24.0-44.0); MEAN CORPUSCULAR HEMOGLOBIN 29.9 pg (27.0-33.0); MEAN CORPUSCULAR HGB CONC 31.6 g/dl (32.0-36.5); MEAN CORPUSCULAR VOLUME 94.6 fl (80.0-96.0); MONO # 0.6 10^3/uL (0.0-0.8); MONO % 8.8 % (2.0-8.0); NEUTROPHILS % 80.1 % (36.0-66.0); PLATELET COUNT, AUTOMATED 183 10^3/uL (150-450); RED BLOOD COUNT 3.51 10^6/uL (4.30-6.10); WHITE BLOOD COUNT 6.3 10^3/uL (4.0-10.0)
[2024-10-27] MEDS: CEFDINIR 300 MG CAP (OMNICEF) PO SCH (12:52)
[2024-10-27 12:55] LABS: BLOOD UREA NITROGEN 55 MG/DL (9-23); CALCIUM LEVEL 9.9 MG/DL (8.3-10.6); CARBON DIOXIDE LEVEL 36 MMOL/L (20-31); CHLORIDE LEVEL 94 MMOL/L (98-107); CREATININE FOR GFR 1.19 MG/DL (0.70-1.30); GLOMERULAR FILTRATION RATE > 60.0 (>35); GLUCOSE, FASTING 129 MG/DL (74-106); MAGNESIUM LEVEL 1.6 MG/DL (1.8-2.4); POTASSIUM SERUM 3.6 MMOL/L (3.5-5.1); SODIUM LEVEL 136 MMOL/L (136-145)
[2024-10-27] MEDS: MAGNESIUM OXIDE 400MG TAB (MAG-OX) PO ONE (16:04)
[2024-10-27] MEDS: FUROSEMIDE 20 MG TAB PO SCH (16:05)
[2024-10-27] MEDS: MAG SULF 1GM/100ML (MAG RUN) 1 GM in IV 1 EA IV SCH (16:06)
[2024-10-28] VITALS (8 sets, daily range): BP systolic 102–134; BP diastolic 52–70; TEMP 97.4–98.2; O2SAT 89–94
[2024-10-28] MEDS ORDERED: DOXY100T PO (07:55)
[2024-10-28] MEDS ORDERED: NICO14PA TD (07:55)
[2024-10-28] MEDS ORDERED: CEFD300CAP PO (07:55)
[2024-10-28] MEDS ORDERED: FLOM0.4C39 PO (07:55)
[2024-10-28] MEDS ORDERED: MIDO5TA PO (07:55)
[2024-10-28] MEDS ORDERED: BACI1CAP PO (07:55)
[2024-10-28] MEDS ORDERED: ALBU8.5H INH (07:57)
[2024-10-28] MEDS ORDERED: METO25TA PO (07:57)
[2024-10-28] MEDS ORDERED: PRED20TA PO (07:57)
[2024-10-28] MEDS ORDERED: DOXY-440 PO (07:57)
[2024-10-28] MEDS ORDERED: PRED10TA2 PO (07:57)
[2024-10-28] MEDS ORDERED: LASI20TA3 PO (07:59)
[2024-10-28] MEDS ORDERED: GNP250TA9 PO (07:59)
[2024-10-28] MEDS: MAG SULF 1GM/100ML (MAG RUN) 1 GM in IV 1 EA IV ONE (08:00)
[2024-10-28 08:53] LABS: EOS % 0.2 % (0.0-3.0); HEMATOCRIT 33.4 % (42.0-52.0); HEMOGLOBIN 10.8 g/dl (13.5-17.5); LYMPH # 1.1 10^3/uL (1.5-5.0); LYMPH % 19.1 % (24.0-44.0); MEAN CORPUSCULAR HEMOGLOBIN 30.1 pg (27.0-33.0); MEAN CORPUSCULAR HGB CONC 32.3 g/dl (32.0-36.5); MONO # 0.6 10^3/uL (0.0-0.8); MONO % 10.2 % (2.0-8.0); NEUTROPHILS # 4.1 10^3/uL (1.5-8.5); NEUTROPHILS % 70.2 % (36.0-66.0); PLATELET COUNT, AUTOMATED 175 10^3/uL (150-450); RED BLOOD COUNT 3.59 10^6/uL (4.30-6.10); WHITE BLOOD COUNT 5.9 10^3/uL (4.0-10.0)
[2024-10-28 09:15] LABS: CK-MB VALUE MASS < 1.0 NG/ML (<3.6)
[2024-10-28 09:16] LABS: CPK CREATINE PHOSPHOKINASE 32 U/L (46-171); MB/CK RELATIVE INDEX 3.12 (< OR =4)
[2024-10-28 09:17] LABS: BLOOD UREA NITROGEN 53 MG/DL (9-23); CALCIUM LEVEL 10.6 MG/DL (8.3-10.6); CARBON DIOXIDE LEVEL 35 MMOL/L (20-31); CHLORIDE LEVEL 96 MMOL/L (98-107); GLOMERULAR FILTRATION RATE > 60.0 (>35); GLUCOSE, FASTING 91 MG/DL (74-106); MAGNESIUM LEVEL 1.8 MG/DL (1.8-2.4); POTASSIUM SERUM 4.3 MMOL/L (3.5-5.1); SODIUM LEVEL 137 MMOL/L (136-145)
[2024-10-28] MEDS: metOLazone 2.5 MG TAB PO ONE (09:17)
[2024-10-28] MEDS: FUROSEMIDE 20MG/2ML VIAL IV ONE ×2 (09:19→18:27)
[2024-10-28] MEDS: MAGNESIUM OXIDE 400MG TAB (MAG-OX) PO SCH (09:19)
[2024-10-28] MEDS: IPRATROPIUM 0.02% SOLN 0.5MG 2.5ML NEB NEB ONE (09:29)
[2024-10-28] MEDS: LEVALBUTEROL 1.25MG 0.5ML CONCENTRATE NEB NEB ONE (09:29)
[2024-10-28] MEDS: TIOTROPIUM INHALER/CAPSULE (SPIRIVA) INH SCH (09:34)
[2024-10-28] MEDS ORDERED: LACTULOSE 20GM/30ML SYRUP UDC PO PRN (14:55)
[2024-10-28] MEDS ORDERED: MOM 30ML SUSPENSION UDC PO PRN (14:55)
[2024-10-28] MEDS: MOM 30ML SUSPENSION UDC PO ONE (15:26)
[2024-10-28] MEDS: LACTULOSE 20GM/30ML SYRUP UDC PO ONE (15:26)
[2024-10-28] MEDS: SENOKOT S TAB PO ONE (15:26)
[2024-10-28] MEDS ORDERED: ALBUTEROL 90 MCG/ACT 8GM HFA INHALER INH PRN (16:55)
[2024-10-28] MEDS: ALBUTEROL 90 MCG/ACT 8GM HFA INHALER INH ONE (17:41)
[2024-10-28] MEDS: ALBUTEROL 90 MCG/ACT 8GM HFA INHALER INH SCH (20:00)
[2024-10-29 03:34] VITALS: BP 117/56; TEMP 97.5; O2SAT 91
[2024-10-29] MEDS: SENOKOT S TAB PO PRN (08:26)
== END 2024-10-29 12:20 | disposition home or self-care (01) | DRG 193 ==
LOC: EDBD 20:33 → M ED 20:33 → M ED INP 10-24 00:35 → M PCU 10-24 14:49 → M MS4PR 10-28 16:48
PROVIDERS: ADMIT Student in an Organized Health Care Education/Training Program; ATTEND Student in an Organized Health Care Education/Training Program
PROC: B246ZZZ Ultrasonography of Right and Left Heart (ICD-10-PCS; principal; 2024-10-24)
DX: J18.9 Pneumonia, unspecified organism (principal); J96.21 Acute and chronic respiratory failure with hypoxia; I50.33 Acute on chronic diastolic (congestive) heart failure; R65.20 Severe sepsis without septic shock; E87.20 Acidosis, unspecified; N17.9 Acute kidney failure, unspecified; I48.21 Permanent atrial fibrillation; J44.1 Chronic obstructive pulmonary disease with (acute) exacerbation; J44.0 Chronic obstructive pulmonary disease with (acute) lower respiratory infection; E78.5 Hyperlipidemia, unspecified; N28.89 Other specified disorders of kidney and ureter; N40.1 Benign prostatic hyperplasia with lower urinary tract symptoms; R53.1 Weakness; Z66 Do not resuscitate; R33.9 Retention of urine, unspecified; Z79.01 Long term (current) use of anticoagulants; Z79.899 Other long term (current) drug therapy; Z87.891 Personal history of nicotine dependence; Z86.73 Personal history of transient ischemic attack (TIA), and cerebral infarction without residual deficits; Z88.0 Allergy status to penicillin

== ENCOUNTER → 2024-12-07 | Outpatient (CLI) | payer MEDICARE ==
[~2024-12-07] MED LIST changes: +ALBU8.5H INH; +BACI1CAP PO; +CEFD300CAP PO; +DOXY-440 PO; +DOXY100T PO; +FLOM0.4C39 PO; +GNP250TA9 PO; +ISOVUE-370 76% 100ML VIAL As Ordered ONE; +LASI20TA3 PO; +METO25TA PO; +MIDO5TA PO; +NICO14PA TD; +PRED10TA2 PO; +PRED20TA PO
== END ==
LOC: M RAD 12:54
PROVIDERS: ATTEND Physician Assistant Medical
DX: N28.89 Other specified disorders of kidney and ureter (principal)
CPT/HCPCS: 74177; Q9967

== ENCOUNTER → 2025-01-20 | Outpatient (CLI) | payer MEDICARE ==
[~2025-01-20] MED LIST changes: -ISOVUE-370 76% 100ML VIAL As Ordered ONE
== END ==
LOC: M RAD 09:32
PROVIDERS: ATTEND Physician Assistant Medical
DX: R09.89 Other specified symptoms and signs involving the circulatory and respiratory systems (principal)

== ENCOUNTER 2025-03-30 16:47 | Inpatient (IN) | payer MEDICARE ==
[~2025-03-30] VITALS: Ht 185.4 cm; Wt 72.0 kg
[~2025-03-30 16:47] MED LIST changes: -FLOM0.4C39 PO; +TAMS-18 PO
[2025-03-30 18:45] LABS: INR 1.06; PARTIAL THROMBOPLASTIN TIME 39.4 SECONDS (24.8-34.2); PROTHROMBIN TIME 14.1 SECONDS (12.5-14.5)
[2025-03-30 18:46] LABS: BASO % 0.7 % (0.0-1.0); EOS # 0.1 10^3/uL (0.0-0.5); EOS % 3.1 % (0.0-3.0); HEMATOCRIT 34.5 % (42.0-52.0); LYMPH # 1.4 10^3/uL (1.5-5.0); LYMPH % 31.7 % (24.0-44.0); MEAN CORPUSCULAR HEMOGLOBIN 25.4 pg (27.0-33.0); MEAN CORPUSCULAR VOLUME 87.6 fl (80.0-96.0); MONO # 0.5 10^3/uL (0.0-0.8); MONO % 11.8 % (2.0-8.0); NEUTROPHILS # 2.4 10^3/uL (1.5-8.5); NEUTROPHILS % 52.3 % (36.0-66.0); PLATELET COUNT, AUTOMATED 240 10^3/uL (150-450); RED BLOOD COUNT 3.94 10^6/uL (4.30-6.10); WHITE BLOOD COUNT 4.5 10^3/uL (4.0-10.0)
[2025-03-30 19:07] LABS: ALBUMIN 3.4 G/DL (3.2-5.2); BILIRUBIN,DIRECT 0.3 MG/DL (<0.4); BILIRUBIN,TOTAL 0.6 MG/DL (0.3-1.2); CALCIUM LEVEL 9.2 MG/DL (8.3-10.6); CREATININE FOR GFR 1.79 MG/DL (0.70-1.30); FREE T4 1.02 NG/DL (0.89-1.76); GLOMERULAR FILTRATION RATE 36.7 (>35); MB/CK RELATIVE INDEX 3.33 (< OR =4); POTASSIUM SERUM 4.5 MMOL/L (3.5-5.1); THYROID STIMULATING HORMONE 2.631 uIU/ML (0.55-4.78); TOTAL PROTEIN 7.3 G/DL (5.7-8.2)
[2025-03-30] MEDS: FUROSEMIDE 40 MG/4 ML VIAL IV ONE (22:51)
[2025-03-30] MEDS ORDERED: PRAV10TA43 PO (23:33)
[2025-03-30] MEDS ORDERED: MED REC COMMENT (23:33)
[2025-03-30] MEDS ORDERED: ACETAMINOPHEN 500 MG TAB PO PRN (23:40)
[2025-03-30] MEDS ORDERED: HOME MED LIST COMPLETE! XX SCH (23:45)
[2025-03-31] MEDS ORDERED: NICOTINE 7 MG/24 HR TRANSDERMAL TD PRN
[2025-03-31] MEDS ORDERED: NICOTINE POLACRILEX 2 MG GUM PO PRN
[2025-03-31 06:04] LABS: HEMOGLOBIN 9.7 g/dl (13.5-17.5); MEAN CORPUSCULAR HEMOGLOBIN 26.2 pg (27.0-33.0); MEAN CORPUSCULAR HGB CONC 30.3 g/dl (32.0-36.5); MEAN CORPUSCULAR VOLUME 86.5 fl (80.0-96.0); PLATELET COUNT, AUTOMATED 225 10^3/uL (150-450); WHITE BLOOD COUNT 5.1 10^3/uL (4.0-10.0)
[2025-03-31 06:21] LABS: INR 1.12; PROTHROMBIN TIME 14.7 SECONDS (12.5-14.5)
[2025-03-31 06:35] LABS: ALBUMIN 3.1 G/DL (3.2-5.2); ALKALINE PHOSPHATASE 97 U/L (40-129); ALT/SGPT < 9 U/L (7.0-40); AST/SGOT 18 U/L (<34); BILIRUBIN,TOTAL 0.7 MG/DL (0.3-1.2); BLOOD UREA NITROGEN 42 MG/DL (9-23); CALCIUM LEVEL 9.4 MG/DL (8.3-10.6); CARBON DIOXIDE LEVEL 30 MMOL/L (20-31); CHLORIDE LEVEL 105 MMOL/L (98-107); CREATININE FOR GFR 1.72 MG/DL (0.70-1.30); GLOMERULAR FILTRATION RATE 38.5 (>35); GLUCOSE, FASTING 82 MG/DL (74-106); POTASSIUM SERUM 4.3 MMOL/L (3.5-5.1); SODIUM LEVEL 145 MMOL/L (136-145); TOTAL PROTEIN 6.6 G/DL (5.7-8.2)
[2025-03-31] MEDS ORDERED: TORSEMIDE 20 MG TAB PO SCH (09:00)
[2025-03-31] MEDS ORDERED: DIGOXIN 0.125 MG TAB PO SCH (09:00)
[2025-03-31] MEDS: bisoproloL fumarate 5 MG TAB PO SCH (09:00)
[2025-03-31] MEDS ORDERED: ELIQ2.5T PO (10:48)
[2025-03-31 11:36] LABS: MAGNESIUM LEVEL 1.9 MG/DL (1.8-2.4)
[2025-03-31 11:42] LABS: PROCALCITONIN 0.09 ng/ml
[2025-03-31] MEDS: MIDODRINE 5 MG TAB PO SCH (12:00)
[2025-03-31] MEDS: FUROSEMIDE 40 MG/4 ML VIAL IV SCH (12:47)
[2025-03-31] MEDS: APIXABAN 2.5 MG TAB PO SCH (12:48)
[2025-03-31 13:53] LABS: HEPATITIS B SURFACE ANTIGEN NEGATIVE (NEGATIVE)
[2025-03-31 14:14] LABS: HEPATITIS C VIRUS ABY INDEX 0.07 INDEX (<0.8)
[2025-03-31 14:15] LABS: HEPATITIS B CORE ANTIBODY IGM NEGATIVE (NEGATIVE)
[2025-03-31 16:30] VITALS: BP 111/57; TEMP 97.5; O2SAT 99
[2025-03-31 20:00] VITALS: BP 115/70; TEMP 97.2; O2SAT 98
[2025-03-31] MEDS: PRAVASTATIN 10 MG TAB PO SCH (21:00)
[2025-03-31 22:45] VITALS: BP 104/50
[2025-04-01] VITALS (9 sets, daily range): BP systolic 92–126; BP diastolic 39–69; TEMP 97.7–98.8; O2SAT 86–99
[2025-04-01 07:02] LABS: KETONE, URINE AUTO RFX NEGATIVE (NEGATIVE); LEUKOCYTE ESTERASE UR AUTO RFX NEGATIVE (NEGATIVE); NITRITE, URINE AUTO RFX NEGATIVE (NEGATIVE); RBC, URINE AUTO RFX 0 /HPF (0-3); SQUAM EPITHELIAL CELL UR AURFX 0 /HPF (0-6); WBC, URINE AUTO RFX 0 /HPF (0-3)
[2025-04-01 07:18] LABS: SODIUM,RANDOM URINE 128 MMOL/L
[2025-04-01 07:32] LABS: HEMATOCRIT 29.7 % (42.0-52.0); MEAN CORPUSCULAR HEMOGLOBIN 26.1 pg (27.0-33.0); MEAN CORPUSCULAR HGB CONC 30.3 g/dl (32.0-36.5); MEAN CORPUSCULAR VOLUME 86.1 fl (80.0-96.0); PLATELET COUNT, AUTOMATED 189 10^3/uL (150-450); RED BLOOD COUNT 3.45 10^6/uL (4.30-6.10); WHITE BLOOD COUNT 5.4 10^3/uL (4.0-10.0)
[2025-04-01 07:43] LABS: INR 1.07; PROTHROMBIN TIME 14.2 SECONDS (12.5-14.5)
[2025-04-01 08:06] LABS: ALKALINE PHOSPHATASE 99 U/L (40-129); ALT/SGPT < 9 U/L (7.0-40); AST/SGOT 17 U/L (<34); BILIRUBIN,TOTAL 0.7 MG/DL (0.3-1.2); BLOOD UREA NITROGEN 42 MG/DL (9-23); CALCIUM LEVEL 9.1 MG/DL (8.3-10.6); CARBON DIOXIDE LEVEL 35 MMOL/L (20-31); CHLORIDE LEVEL 102 MMOL/L (98-107); CREATININE FOR GFR 1.68 MG/DL (0.70-1.30); GLOMERULAR FILTRATION RATE 39.6 (>35); GLUCOSE, FASTING 91 MG/DL (74-106); POTASSIUM SERUM 4.1 MMOL/L (3.5-5.1); SODIUM LEVEL 143 MMOL/L (136-145); TOTAL PROTEIN 6.5 G/DL (5.7-8.2)
[2025-04-02] VITALS (9 sets, daily range): BP systolic 86–116; BP diastolic 38–55; TEMP 98.1–98.8; O2SAT 90–95
[2025-04-02 07:42] LABS: HEMATOCRIT 28.2 % (42.0-52.0); HEMOGLOBIN 8.4 g/dl (13.5-17.5); MEAN CORPUSCULAR HEMOGLOBIN 25.6 pg (27.0-33.0); MEAN CORPUSCULAR HGB CONC 29.8 g/dl (32.0-36.5); PLATELET COUNT, AUTOMATED 192 10^3/uL (150-450); RED BLOOD COUNT 3.28 10^6/uL (4.30-6.10); WHITE BLOOD COUNT 5.6 10^3/uL (4.0-10.0)
[2025-04-02 08:12] LABS: ALBUMIN 2.9 G/DL (3.2-5.2); BILIRUBIN,TOTAL 0.6 MG/DL (0.3-1.2); CALCIUM LEVEL 9.2 MG/DL (8.3-10.6); CREATININE FOR GFR 1.5 MG/DL (0.70-1.30); GLOMERULAR FILTRATION RATE 45.3 (>35); POTASSIUM SERUM 4.3 MMOL/L (3.5-5.1); TOTAL PROTEIN 6.4 G/DL (5.7-8.2)
[2025-04-02] MEDS: MIDODRINE 5 MG TAB PO SCH (13:12)
[2025-04-02] MEDS: FUROSEMIDE injection 100 MG, VIAL 2 BAG 13MM ADAPTER 1 EACH in NS 100 ML IV SCH (14:09)
[2025-04-03] VITALS (9 sets, daily range): BP systolic 96–112; BP diastolic 46–62; TEMP 97.7–98.6; O2SAT 77–96
[2025-04-03 07:09] LABS: HEMATOCRIT 28.6 % (42.0-52.0); HEMOGLOBIN 8.7 g/dl (13.5-17.5); MEAN CORPUSCULAR HEMOGLOBIN 25.7 pg (27.0-33.0); MEAN CORPUSCULAR HGB CONC 30.4 g/dl (32.0-36.5); MEAN CORPUSCULAR VOLUME 84.6 fl (80.0-96.0); PLATELET COUNT, AUTOMATED 206 10^3/uL (150-450); RED BLOOD COUNT 3.38 10^6/uL (4.30-6.10); WHITE BLOOD COUNT 5.7 10^3/uL (4.0-10.0)
[2025-04-03 07:33] LABS: ALBUMIN 3.1 G/DL (3.2-5.2); BILIRUBIN,TOTAL 0.9 MG/DL (0.3-1.2); CALCIUM LEVEL 9.2 MG/DL (8.3-10.6); CREATININE FOR GFR 1.35 MG/DL (0.70-1.30); FERRITIN 31.2 NG/ML (10.5-307.3); GLOMERULAR FILTRATION RATE 51.5 (>35); MAGNESIUM LEVEL 1.9 MG/DL (1.8-2.4); POTASSIUM SERUM 4.1 MMOL/L (3.5-5.1); TOTAL PROTEIN 6.7 G/DL (5.7-8.2)
[2025-04-03] MEDS ORDERED: PILL CUTTER 1 EACH XX PRN (09:35)
[2025-04-03] MEDS: DIGOXIN 0.0625 MG PER 1/2 TABLET PO SCH (09:58)
[2025-04-04 04:00] VITALS: BP 126/67; TEMP 97.3; O2SAT 93
[2025-04-04 06:28] LABS: HEMATOCRIT 27.6 % (42.0-52.0); HEMOGLOBIN 8.5 g/dl (13.5-17.5); MEAN CORPUSCULAR HEMOGLOBIN 26.3 pg (27.0-33.0); MEAN CORPUSCULAR HGB CONC 30.8 g/dl (32.0-36.5); MEAN CORPUSCULAR VOLUME 85.4 fl (80.0-96.0); PLATELET COUNT, AUTOMATED 185 10^3/uL (150-450); RED BLOOD COUNT 3.23 10^6/uL (4.30-6.10); WHITE BLOOD COUNT 5.7 10^3/uL (4.0-10.0)
[2025-04-04 06:55] LABS: ALBUMIN 3.1 G/DL (3.2-5.2); BILIRUBIN,TOTAL 0.9 MG/DL (0.3-1.2); CALCIUM LEVEL 9.7 MG/DL (8.3-10.6); CREATININE FOR GFR 1.4 MG/DL (0.70-1.30); GLOMERULAR FILTRATION RATE 49.3 (>35); POTASSIUM SERUM 4.1 MMOL/L (3.5-5.1); TOTAL PROTEIN 6.7 G/DL (5.7-8.2)
[2025-04-04 08:00] VITALS: BP 98/42; TEMP 98.6; O2SAT 92
[2025-04-04 12:00] VITALS: BP 122/76; TEMP 97.9; O2SAT 96
[2025-04-04] MEDS: FERRIC CARBOXYMALTOSE INJ 750 MG, VIAL MATE ADAPTER 1 EACH in NS 100 ML IV ONE (13:00)
[2025-04-04 16:00] VITALS: BP 110/76; TEMP 97.9; O2SAT 95
[2025-04-04 20:00] VITALS: BP 108/60; TEMP 98.1; O2SAT 93
[2025-04-05] VITALS (11 sets, daily range): BP systolic 94–110; BP diastolic 50–72; TEMP 97.3–98.6; O2SAT 74–96
[2025-04-05 06:44] LABS: HEMATOCRIT 28.5 % (42.0-52.0); HEMOGLOBIN 8.4 g/dl (13.5-17.5); MEAN CORPUSCULAR HEMOGLOBIN 25.2 pg (27.0-33.0); MEAN CORPUSCULAR HGB CONC 29.5 g/dl (32.0-36.5); MEAN CORPUSCULAR VOLUME 85.6 fl (80.0-96.0); PLATELET COUNT, AUTOMATED 194 10^3/uL (150-450); RED BLOOD COUNT 3.33 10^6/uL (4.30-6.10)
[2025-04-05 07:15] LABS: ALBUMIN 3.1 G/DL (3.2-5.2); BILIRUBIN,TOTAL 0.9 MG/DL (0.3-1.2); CALCIUM LEVEL 9.7 MG/DL (8.3-10.6); CREATININE FOR GFR 1.25 MG/DL (0.70-1.30); GLOMERULAR FILTRATION RATE 56.4 (>35); POTASSIUM SERUM 3.9 MMOL/L (3.5-5.1); TOTAL PROTEIN 6.8 G/DL (5.7-8.2)
[2025-04-05 07:54] LABS: MAGNESIUM LEVEL 1.7 MG/DL (1.8-2.4)
[2025-04-05] MEDS: POTASSIUM CHLORIDE 10MEQ SR TABLET PO ONE ×2 (08:19→16:32)
[2025-04-05] MEDS ORDERED: IPRATROPIUM 0.5 MG/ALBUTEROL 2.5 MG INH SOL UD 3 ML NEB PRN (09:35)
[2025-04-05] MEDS: TORSEMIDE 50 MG PER 1/2 TAB PO SCH (11:07)
[2025-04-05] MEDS: MAG SULF 1GM/100ML (MAG RUN) 1 GM in IV 1 EA IV SCH (11:08)
[2025-04-05] MEDS: IPRATROPIUM 0.5 MG/ALBUTEROL 2.5 MG INH SOL UD 3 ML NEB SCH (13:49)
[2025-04-05 13:55] LABS: ABG BASE EXCESS 9.5 (-2.0-2.0); ABG HCO3 35.6 MMOL/L (22.0-26.0); ABG O2 SATURATION 90.9 % (95.0-99.0); ABG PARTIAL PRESSURE O2 64.6 mmHg (75.0-100.0); ABG STANDARD HCO3 33.2 MMOL/L. (22.0-26.0); ABG TOTAL CO2 37.4 MMOL/L (23.0-31.0); ABG pH (ARTERIAL) 7.406 UNITS (7.350-7.450)
[2025-04-05 14:12] LABS: VENOUS HCO3 38.2 MMOL/L (23.0-27.0); VENOUS O2 SATURATION 99.2 % (60.0-80.0); VENOUS PARTIAL PRESSURE CO2 60.3 mmHg (38.0-50.0); VENOUS PARTIAL PRESSURE O2 142.8 mmHg (30.0-50.0); VENOUS STANDARD HCO3 35.8 MMOL/L; VENOUS TOTAL CO2 40.1 MMOL/L (24.0-28.0)
[2025-04-06] VITALS (17 sets, daily range): BP systolic 92–166; BP diastolic 40–83; TEMP 97.3–99.1; O2SAT 85–99
[2025-04-06 06:51] LABS: BASO % 0.5 % (0.0-1.0); EOS # 0.2 10^3/uL (0.0-0.5); EOS % 2.9 % (0.0-3.0); HEMATOCRIT 26.8 % (42.0-52.0); HEMOGLOBIN 7.8 g/dl (13.5-17.5); LYMPH # 1.1 10^3/uL (1.5-5.0); LYMPH % 20.8 % (24.0-44.0); MEAN CORPUSCULAR HEMOGLOBIN 25.2 pg (27.0-33.0); MEAN CORPUSCULAR HGB CONC 29.1 g/dl (32.0-36.5); MEAN CORPUSCULAR VOLUME 86.7 fl (80.0-96.0); MONO # 0.8 10^3/uL (0.0-0.8); MONO % 14.8 % (2.0-8.0); NEUTROPHILS # 3.3 10^3/uL (1.5-8.5); NEUTROPHILS % 60.5 % (36.0-66.0); PLATELET COUNT, AUTOMATED 184 10^3/uL (150-450); RED BLOOD COUNT 3.09 10^6/uL (4.30-6.10); WHITE BLOOD COUNT 5.5 10^3/uL (4.0-10.0)
[2025-04-06 07:10] LABS: ALBUMIN 2.9 G/DL (3.2-5.2); BILIRUBIN,TOTAL 0.8 MG/DL (0.3-1.2); CALCIUM LEVEL 9.3 MG/DL (8.3-10.6); CREATININE FOR GFR 1.38 MG/DL (0.70-1.30); GLOMERULAR FILTRATION RATE 50.1 (>35); MAGNESIUM LEVEL 2.6 MG/DL (1.8-2.4); POTASSIUM SERUM 3.8 MMOL/L (3.5-5.1); TOTAL PROTEIN 6.6 G/DL (5.7-8.2)
[2025-04-06] MEDS ORDERED: ONDANSETRON 4MG 2ML VIAL IV PRN (15:25)
[2025-04-06] MEDS ORDERED: PERCOCET 5MG/325MG TAB PO PRN (15:25)
[2025-04-06] MEDS ORDERED: LEVALBUTEROL 1.25 MG 0.5ML CONCENTRATE NEB NEB PRN (15:25)
[2025-04-06 17:21] LABS: APPEARANCE, BODY FLUID HAZY (CLEAR); PLEURAL FL COLOR RED (COLORLESS); SOURCE, BODY FLUID PLEURAL
[2025-04-06 17:31] LABS: PH BODY FLUID > 7.800 UNITS (NOT ESTABLISHED); SOURCE, BODY FLUID pH PLEURAL
[2025-04-06 17:34] LABS: SOURCE, BODY FLUID ALBUMIN PLEURAL
[2025-04-06] MEDS: PANTOPRAZOLE 40MG TAB PO SCH (17:38)
[2025-04-06 17:39] LABS: SOURCE, BODY FLUID GLUCOSE PLEURAL; SOURCE, BODY FLUID TRIG PLEURAL; TRIGLYCERIDE, BODY FLUID 26 MG/DL (NOT ESTABLISHED)
[2025-04-06 17:40] LABS: SOURCE, BODY FLUID TOT PROTEIN PLEURAL; TOTAL PROTEIN, BODY FLUID 2.6 G/DL (NOT ESTABLISHED)
[2025-04-06 17:41] LABS: AMYLASE, BODY FLUID 30 U/L (NOT ESTABLISHED); LDH, BODY FLUID 83 U/L (NOT ESTABLISHED); SOURCE, BODY FLUID AMYLASE PLEURAL; SOURCE, BODY FLUID LDH PLEURAL
[2025-04-06 17:42] LABS: CHOLESTEROL, BODY FLUID < 25 MG/DL (NOT ESTABLISHED); SOURCE, BODY FLUID CHOL PLEURAL
[2025-04-06] MEDS: LEVALBUTEROL 1.25 MG 0.5ML CONCENTRATE NEB NEB SCH (19:49)
[2025-04-07] VITALS (23 sets, daily range): BP systolic 110–181; BP diastolic 53–83; TEMP 96.8–97.8; O2SAT 82–100
[2025-04-07 05:25] LABS: ABG BASE EXCESS 13.6 (-2.0-2.0); ABG HCO3 39.3 MMOL/L (22.0-26.0); ABG O2 SATURATION 94.6 % (95.0-99.0); ABG PARTIAL PRESSURE CO2 58.4 mmHg (35.0-45.0); ABG PARTIAL PRESSURE O2 74.3 mmHg (75.0-100.0); ABG STANDARD HCO3 37.2 MMOL/L. (22.0-26.0); ABG TOTAL CO2 41.1 MMOL/L (23.0-31.0); ABG pH (ARTERIAL) 7.446 UNITS (7.350-7.450)
[2025-04-07 05:44] LABS: BASO % 0.5 % (0.0-1.0); EOS # 0.2 10^3/uL (0.0-0.5); EOS % 2.5 % (0.0-3.0); HEMOGLOBIN 8.1 g/dl (13.5-17.5); LYMPH # 1.2 10^3/uL (1.5-5.0); LYMPH % 19.7 % (24.0-44.0); MEAN CORPUSCULAR HEMOGLOBIN 26.1 pg (27.0-33.0); MEAN CORPUSCULAR VOLUME 87.1 fl (80.0-96.0); MONO % 16.4 % (2.0-8.0); NEUTROPHILS # 3.6 10^3/uL (1.5-8.5); NEUTROPHILS % 60.6 % (36.0-66.0); PLATELET COUNT, AUTOMATED 191 10^3/uL (150-450)
[2025-04-07 06:08] LABS: ALKALINE PHOSPHATASE 173 U/L (40-129); ALT/SGPT 13 U/L (7.0-40); AST/SGOT 26 U/L (<34); BLOOD UREA NITROGEN 50 MG/DL (9-23); CALCIUM LEVEL 9.5 MG/DL (8.3-10.6); CARBON DIOXIDE LEVEL > 40.0 MMOL/L (20-31); CHLORIDE LEVEL 94 MMOL/L (98-107); CREATININE FOR GFR 1.26 MG/DL (0.70-1.30); GLOMERULAR FILTRATION RATE 55.9 (>35); GLUCOSE, FASTING 93 MG/DL (74-106); MAGNESIUM LEVEL 1.9 MG/DL (1.8-2.4); POTASSIUM SERUM 4.1 MMOL/L (3.5-5.1); SODIUM LEVEL 143 MMOL/L (136-145); TOTAL PROTEIN 6.6 G/DL (5.7-8.2)
[2025-04-07] MEDS: POTASSIUM CHLORIDE 10MEQ SR TABLET PO SCH (13:05)
[2025-04-07] MEDS: acetaZOLAMIDE 500 MG INJECTION IV SCH (13:05)
[2025-04-07] MEDS: MAG SULF 1GM/100ML (MAG RUN) 1 GM in IV 1 EA IV ONE (16:17)
[2025-04-08] VITALS (30 sets, daily range): BP systolic 105–133; BP diastolic 51–62; TEMP 97.1–97.6; O2SAT 83–100
[2025-04-08 06:39] LABS: BASO % 0.7 % (0.0-1.0); EOS # 0.2 10^3/uL (0.0-0.5); HEMATOCRIT 27.1 % (42.0-52.0); HEMOGLOBIN 7.8 g/dl (13.5-17.5); LYMPH % 17.2 % (24.0-44.0); MEAN CORPUSCULAR HEMOGLOBIN 25.7 pg (27.0-33.0); MEAN CORPUSCULAR HGB CONC 28.8 g/dl (32.0-36.5); MEAN CORPUSCULAR VOLUME 89.1 fl (80.0-96.0); MONO % 16.3 % (2.0-8.0); NEUTROPHILS # 3.7 10^3/uL (1.5-8.5); NEUTROPHILS % 61.5 % (36.0-66.0); PLATELET COUNT, AUTOMATED 179 10^3/uL (150-450); RED BLOOD COUNT 3.04 10^6/uL (4.30-6.10)
[2025-04-08 07:00] LABS: BILIRUBIN,TOTAL 0.8 MG/DL (0.3-1.2); CALCIUM LEVEL 9.3 MG/DL (8.3-10.6); CREATININE FOR GFR 1.42 MG/DL (0.70-1.30); GLOMERULAR FILTRATION RATE 48.4 (>35); POTASSIUM SERUM 3.8 MMOL/L (3.5-5.1); TOTAL PROTEIN 6.7 G/DL (5.7-8.2)
[2025-04-08] MEDS: POTASSIUM CHLORIDE 10MEQ SR TABLET PO ONE (09:58)
[2025-04-08] MEDS: POTASSIUM CHLORIDE 10MEQ SR TABLET PO SCH (16:37)
[2025-04-08] MEDS: TORSEMIDE 50 MG PER 1/2 TAB PO SCH (16:37)
[2025-04-09] VITALS (33 sets, daily range): BP systolic 100–129; BP diastolic 52–78; TEMP 97.1–97.6; O2SAT 90–100
[2025-04-09 04:52] LABS: BASO # 0.1 10^3/uL (0.0-0.2); BASO % 0.8 % (0.0-1.0); EOS # 0.2 10^3/uL (0.0-0.5); EOS % 2.9 % (0.0-3.0); HEMATOCRIT 25.1 % (42.0-52.0); HEMOGLOBIN 7.5 g/dl (13.5-17.5); LYMPH # 1.1 10^3/uL (1.5-5.0); LYMPH % 16.7 % (24.0-44.0); MEAN CORPUSCULAR HEMOGLOBIN 26.1 pg (27.0-33.0); MEAN CORPUSCULAR HGB CONC 29.9 g/dl (32.0-36.5); MEAN CORPUSCULAR VOLUME 87.5 fl (80.0-96.0); MONO # 1.2 10^3/uL (0.0-0.8); MONO % 17.6 % (2.0-8.0); NEUTROPHILS # 4.1 10^3/uL (1.5-8.5); NEUTROPHILS % 61.7 % (36.0-66.0); PLATELET COUNT, AUTOMATED 191 10^3/uL (150-450); RED BLOOD COUNT 2.87 10^6/uL (4.30-6.10); WHITE BLOOD COUNT 6.6 10^3/uL (4.0-10.0)
[2025-04-09 05:31] LABS: ALBUMIN 2.9 G/DL (3.2-5.2); BILIRUBIN,TOTAL 0.9 MG/DL (0.3-1.2); CALCIUM LEVEL 9.3 MG/DL (8.3-10.6); CREATININE FOR GFR 1.93 MG/DL (0.70-1.30); GLOMERULAR FILTRATION RATE 33.5 (>35); MAGNESIUM LEVEL 2.1 MG/DL (1.8-2.4); POTASSIUM SERUM 4.6 MMOL/L (3.5-5.1); TOTAL PROTEIN 6.4 G/DL (5.7-8.2)
[2025-04-10] VITALS (25 sets, daily range): BP systolic 94–125; BP diastolic 47–71; TEMP 97.1–98; O2SAT 91–100
[2025-04-10 04:28] LABS: BASO % 0.6 % (0.0-1.0); EOS # 0.2 10^3/uL (0.0-0.5); EOS % 2.6 % (0.0-3.0); HEMATOCRIT 24.9 % (42.0-52.0); HEMOGLOBIN 7.4 g/dl (13.5-17.5); LYMPH # 1.2 10^3/uL (1.5-5.0); MEAN CORPUSCULAR HEMOGLOBIN 25.5 pg (27.0-33.0); MEAN CORPUSCULAR HGB CONC 29.7 g/dl (32.0-36.5); MEAN CORPUSCULAR VOLUME 85.9 fl (80.0-96.0); MONO # 1.1 10^3/uL (0.0-0.8); MONO % 17.2 % (2.0-8.0); NEUTROPHILS # 4.1 10^3/uL (1.5-8.5); NEUTROPHILS % 61.3 % (36.0-66.0); PLATELET COUNT, AUTOMATED 194 10^3/uL (150-450); WHITE BLOOD COUNT 6.6 10^3/uL (4.0-10.0)
[2025-04-10 05:17] LABS: ALBUMIN 2.9 G/DL (3.2-5.2); BILIRUBIN,TOTAL 1.1 MG/DL (0.3-1.2); CALCIUM LEVEL 9.4 MG/DL (8.3-10.6); CREATININE FOR GFR 2.92 MG/DL (0.70-1.30); GLOMERULAR FILTRATION RATE 20.4 (>35); MAGNESIUM LEVEL 2.2 MG/DL (1.8-2.4); TOTAL PROTEIN 6.3 G/DL (5.7-8.2)
[2025-04-10] MEDS: DARBEPOETIN 100 MCG/0.5 ML *NON-DIALYSIS* SYRINGE SC SCH (10:44)
[2025-04-11 03:31] VITALS: BP 119/72; TEMP 97.2; O2SAT 95
[2025-04-11 06:32] LABS: BASO % 0.6 % (0.0-1.0); EOS # 0.1 10^3/uL (0.0-0.5); EOS % 1.5 % (0.0-3.0); HEMATOCRIT 26.4 % (42.0-52.0); HEMOGLOBIN 8.3 g/dl (13.5-17.5); LYMPH # 1.1 10^3/uL (1.5-5.0); MEAN CORPUSCULAR HEMOGLOBIN 26.7 pg (27.0-33.0); MEAN CORPUSCULAR HGB CONC 31.4 g/dl (32.0-36.5); MEAN CORPUSCULAR VOLUME 84.9 fl (80.0-96.0); MONO # 1.1 10^3/uL (0.0-0.8); MONO % 17.2 % (2.0-8.0); NEUTROPHILS # 4.1 10^3/uL (1.5-8.5); NEUTROPHILS % 63.2 % (36.0-66.0); PLATELET COUNT, AUTOMATED 228 10^3/uL (150-450); RED BLOOD COUNT 3.11 10^6/uL (4.30-6.10); WHITE BLOOD COUNT 6.5 10^3/uL (4.0-10.0)
[2025-04-11 06:52] LABS: CALCIUM LEVEL 10.1 MG/DL (8.3-10.6); MAGNESIUM LEVEL 2.4 MG/DL (1.8-2.4); POTASSIUM SERUM 5.2 MMOL/L (3.5-5.1); TOTAL PROTEIN 6.5 G/DL (5.7-8.2)
[2025-04-11 07:08] LABS: BILIRUBIN,TOTAL 1.1 MG/DL (0.3-1.2); CREATININE FOR GFR 3.66 MG/DL (0.70-1.30); GLOMERULAR FILTRATION RATE 15.6 (>35)
[2025-04-11 07:48] VITALS: BP 131/71; TEMP 97.6; O2SAT 100
[2025-04-11] MEDS: PATIROMER SORBITEX CALCIUM 8.4GM POWDER PACKET PO ONE (08:29)
[2025-04-11 15:58] VITALS: BP 105/46; TEMP 97.5; O2SAT 90
[2025-04-11 21:09] VITALS: BP 88/51; TEMP 97.2; O2SAT 76
[2025-04-12] VITALS (24 sets, daily range): BP systolic 87–108; BP diastolic 40–60; TEMP 96.4–97.5; O2SAT 83–100
[2025-04-12] MEDS: MIDODRINE 5 MG TAB PO ONE (04:39)
[2025-04-12 06:36] LABS: BASO % 0.6 % (0.0-1.0); EOS # 0.2 10^3/uL (0.0-0.5); EOS % 3.3 % (0.0-3.0); HEMATOCRIT 26.1 % (42.0-52.0); HEMOGLOBIN 8.4 g/dl (13.5-17.5); LYMPH # 0.9 10^3/uL (1.5-5.0); LYMPH % 17.1 % (24.0-44.0); MEAN CORPUSCULAR HEMOGLOBIN 27.7 pg (27.0-33.0); MEAN CORPUSCULAR HGB CONC 32.2 g/dl (32.0-36.5); MEAN CORPUSCULAR VOLUME 86.1 fl (80.0-96.0); MONO % 17.6 % (2.0-8.0); NEUTROPHILS # 3.3 10^3/uL (1.5-8.5); NEUTROPHILS % 60.8 % (36.0-66.0); PLATELET COUNT, AUTOMATED 241 10^3/uL (150-450); RED BLOOD COUNT 3.03 10^6/uL (4.30-6.10); WHITE BLOOD COUNT 5.4 10^3/uL (4.0-10.0)
[2025-04-12 07:41] LABS: ALBUMIN 2.8 G/DL (3.2-5.2); BILIRUBIN,TOTAL 0.9 MG/DL (0.3-1.2); CALCIUM LEVEL 10.1 MG/DL (8.3-10.6); CREATININE FOR GFR 3.51 MG/DL (0.70-1.30); GLOMERULAR FILTRATION RATE 16.4 (>35); MAGNESIUM LEVEL 2.4 MG/DL (1.8-2.4); TOTAL PROTEIN 6.3 G/DL (5.7-8.2)
[2025-04-12 10:13] LABS: ABG BASE EXCESS 7.1 (-2.0-2.0); ABG HCO3 32.8 MMOL/L (22.0-26.0); ABG O2 SATURATION 90.2 % (95.0-99.0); ABG PARTIAL PRESSURE CO2 53.6 mmHg (35.0-45.0); ABG PARTIAL PRESSURE O2 60.6 mmHg (75.0-100.0); ABG STANDARD HCO3 30.8 MMOL/L. (22.0-26.0); ABG TOTAL CO2 34.5 MMOL/L (23.0-31.0); ABG pH (ARTERIAL) 7.405 UNITS (7.350-7.450)
[2025-04-12] MEDS: SENNOSIDES/DOCUSATE SODIUM 8.6 MG/50MG TAB PO SCH (11:20)
[2025-04-12] MEDS ORDERED: GLUCOSE 4 GM CHEW PO PRN (17:35)
[2025-04-12] MEDS ORDERED: DEXTROSE 50% 50 ML SYRINGE IV PRN (17:35)
[2025-04-12] MEDS ORDERED: GLUCAGON INJ 1 MG VIAL SC PRN (17:35)
[2025-04-13] VITALS (9 sets, daily range): BP systolic 86–116; BP diastolic 48–70; TEMP 97.3–98.2; O2SAT 95–100
[2025-04-13 04:12] LABS: BASO % 0.5 % (0.0-1.0); EOS # 0.1 10^3/uL (0.0-0.5); EOS % 2.3 % (0.0-3.0); HEMATOCRIT 26.7 % (42.0-52.0); HEMOGLOBIN 8.3 g/dl (13.5-17.5); LYMPH % 16.6 % (24.0-44.0); MEAN CORPUSCULAR HEMOGLOBIN 27.3 pg (27.0-33.0); MEAN CORPUSCULAR HGB CONC 31.1 g/dl (32.0-36.5); MEAN CORPUSCULAR VOLUME 87.8 fl (80.0-96.0); MONO % 17.6 % (2.0-8.0); NEUTROPHILS # 3.6 10^3/uL (1.5-8.5); NEUTROPHILS % 62.7 % (36.0-66.0); PLATELET COUNT, AUTOMATED 270 10^3/uL (150-450); RED BLOOD COUNT 3.04 10^6/uL (4.30-6.10); WHITE BLOOD COUNT 5.7 10^3/uL (4.0-10.0)
[2025-04-13 04:43] LABS: DIGOXIN LEVEL 0.9 NG/ML (0.8-2.0)
[2025-04-13 04:44] LABS: ALBUMIN 2.8 G/DL (3.2-5.2); BILIRUBIN,TOTAL 0.8 MG/DL (0.3-1.2); CALCIUM LEVEL 9.5 MG/DL (8.3-10.6); CREATININE FOR GFR 2.83 MG/DL (0.70-1.30); GLOMERULAR FILTRATION RATE 21.2 (>35); MAGNESIUM LEVEL 2.2 MG/DL (1.8-2.4); POTASSIUM SERUM 3.5 MMOL/L (3.5-5.1); TOTAL PROTEIN 6.3 G/DL (5.7-8.2)
[2025-04-13] MEDS ORDERED: VARIBAR NECTAR 40% w/v 240ML SUSP BTL As Ordered ONE (08:50)
[2025-04-13] MEDS ORDERED: E-Z-PAQUE 96% w/w SUSP 176 GM BTL As Ordered ONE (08:50)
[2025-04-13] MEDS ORDERED: BARIUM SULFATE 700 MG TABLET As Ordered ONE (08:50)
[2025-04-13] MEDS ORDERED: VARIBAR PUDDING 40% w/v 230ML TUBE As Ordered ONE (08:50)
[2025-04-13] MEDS: POTASSIUM CHLORIDE 10MEQ SR TABLET PO ONE (10:03)
[2025-04-13] MEDS: KCL 20MEQ IN D5/0.45NS 1000ML 1,000 ML IV SCH (13:00)
[2025-04-13] MEDS ORDERED: ONDANSETRON 4MG ORAL DISINTEGRATING TAB PO PRN (16:35)
[2025-04-13] MEDS: LORazepam 1 MG TAB PO PRN (23:25)
[2025-04-14 08:16] VITALS: TEMP 96.7
[2025-04-14 09:48] VITALS: BP 103/56
[2025-04-14 16:02] VITALS: BP 93/48
[2025-04-14] MEDS: LORazepam 1 MG TAB PO SCH (21:58)
[2025-04-17] MEDS: MORPHINE 10 MG/0.5 ML ORAL CONCENTRATE SOLUTION U/D SL PRN (02:42)
[2025-04-19] MEDS: MORPHINE 10 MG/0.5 ML ORAL CONCENTRATE SOLUTION U/D SL SCH (14:00)
[2025-04-19] MEDS: LORazepam 1 MG TAB PO SCH (17:33)
[2025-04-20] MEDS ORDERED: SENNOSIDES/DOCUSATE SODIUM 8.6 MG/50MG TAB PO PRN (09:10)
[2025-04-20] MEDS: HYOSCYAMINE SULFATE 0.125 MG SUBL TABLET PO PRN (13:30)
[2025-04-20] MEDS: ATROPINE SULFATE 1% OPHTH SOLN 2 ML BTL SL PRN (14:17)
[2025-04-20] MEDS ORDERED: LORazepam 2 MG TAB PO PRN (16:05)
[2025-04-20] MEDS ORDERED: MORPHINE 10 MG/0.5 ML ORAL CONCENTRATE SOLUTION U/D SL PRN (16:05)
[2025-04-20] MEDS: MORPHINE 10 MG/0.5 ML ORAL CONCENTRATE SOLUTION U/D SL SCH (18:00)
[2025-04-20] MEDS ORDERED: LORazepam 2 MG TAB PO SCH (22:00)
== END 2025-04-20 21:15 | disposition expired | DRG 291 ==
LOC: EDBD 16:47 → M ED 16:47 → M ED INP 23:47 → M MS5PR 03-31 16:27 → M PCU 04-06 12:27 → M MSPAV 04-16 17:54
PROVIDERS: ADMIT Student in an Organized Health Care Education/Training Program; ATTEND Family Medicine
PROC: 0W9930Z Drainage of Right Pleural Cavity with Drainage Device, Percutaneous Approach (ICD-10-PCS; 2025-04-06)
PROC: B246ZZZ Ultrasonography of Right and Left Heart (ICD-10-PCS; principal; 2025-04-07)
PROC: 30233N1 Transfusion of Nonautologous Red Blood Cells into Peripheral Vein, Percutaneous Approach (ICD-10-PCS; 2025-04-10)
DX: I13.0 Hypertensive heart and chronic kidney disease with heart failure and stage 1 through stage 4 chronic kidney disease, or unspecified chronic kidney disease (principal); I50.33 Acute on chronic diastolic (congestive) heart failure; J96.21 Acute and chronic respiratory failure with hypoxia; N17.9 Acute kidney failure, unspecified; J98.11 Atelectasis; J90 Pleural effusion, not elsewhere classified; I48.20 Chronic atrial fibrillation, unspecified; E87.3 Alkalosis; E87.4 Mixed disorder of acid-base balance; E78.5 Hyperlipidemia, unspecified; R53.83 Other fatigue; F17.210 Nicotine dependence, cigarettes, uncomplicated; R53.1 Weakness; I27.20 Pulmonary hypertension, unspecified; I73.9 Peripheral vascular disease, unspecified; N18.9 Chronic kidney disease, unspecified; Z51.5 Encounter for palliative care; Z66 Do not resuscitate; D50.9 Iron deficiency anemia, unspecified; K70.31 Alcoholic cirrhosis of liver with ascites; I50.82 Biventricular heart failure; K76.1 Chronic passive congestion of liver; K21.9 Gastro-esophageal reflux disease without esophagitis; E87.6 Hypokalemia; E87.5 Hyperkalemia; R33.9 Retention of urine, unspecified; I50.810 Right heart failure, unspecified; I87.2 Venous insufficiency (chronic) (peripheral); R31.9 Hematuria, unspecified; N40.1 Benign prostatic hyperplasia with lower urinary tract symptoms; I69.398 Other sequelae of cerebral infarction; F10.11 Alcohol abuse, in remission; I95.9 Hypotension, unspecified; I36.0 Nonrheumatic tricuspid (valve) stenosis; R32 Unspecified urinary incontinence; H91.93 Unspecified hearing loss, bilateral; R20.0 Anesthesia of skin; N13.9 Obstructive and reflux uropathy, unspecified; H91.10 Presbycusis, unspecified ear; R53.81 Other malaise; Z79.01 Long term (current) use of anticoagulants; Z79.899 Other long term (current) drug therapy; Z88.0 Allergy status to penicillin; Z97.4 Presence of external hearing-aid; Z99.81 Dependence on supplemental oxygen